=== PATIENT | female | born 1945 | race Caucasian/White ===

== ENCOUNTER 2016-07-08 07:04 | Outpatient (CLI) | payer MEDICARE | END 2016-07-08 07:05 | disposition home or self-care (01) | DX: I48.91 Unspecified atrial fibrillation (principal); I65.1 Occlusion and stenosis of basilar artery; I25.9 Chronic ischemic heart disease, unspecified; E78.5 Hyperlipidemia, unspecified; I10 Essential (primary) hypertension; M54.5 Low back pain; F41.8 Other specified anxiety disorders; G35 Multiple sclerosis; G47.30 Sleep apnea, unspecified; R32 Unspecified urinary incontinence; Z51.81 Encounter for therapeutic drug level monitoring ==

== ENCOUNTER 2016-07-16 07:03 | Outpatient (CLI) | payer MEDICARE | END 2016-07-16 07:04 | disposition home or self-care (01) | LOC: LAB.F 07:03 | PROVIDERS: ATTEND Internal Medicine | DX: I48.91 Unspecified atrial fibrillation (principal) | CPT/HCPCS: 85610 ==

== ENCOUNTER 2016-07-22 07:06 | Outpatient (CLI) | payer MEDICARE | END 2016-07-22 07:07 | disposition home or self-care (01) | DX: I48.91 Unspecified atrial fibrillation (principal) ==

== ENCOUNTER 2016-08-20 07:22 | Outpatient (CLI) | payer MEDICARE | END 2016-08-20 07:23 | disposition home or self-care (01) | DX: I48.91 Unspecified atrial fibrillation (principal) ==

== ENCOUNTER 2016-08-23 07:09 | Outpatient (CLI) | payer MEDICARE | END 2016-08-23 07:10 | disposition home or self-care (01) | DX: I48.91 Unspecified atrial fibrillation (principal) ==

== ENCOUNTER 2016-08-27 07:02 | Outpatient (CLI) | payer MEDICARE | END 2016-08-27 07:03 | disposition home or self-care (01) | DX: I48.91 Unspecified atrial fibrillation (principal) ==

== ENCOUNTER 2016-08-30 06:58 | Outpatient (CLI) | payer MEDICARE | END 2016-08-30 06:59 | disposition home or self-care (01) | DX: I48.91 Unspecified atrial fibrillation (principal) ==

== ENCOUNTER 2016-09-13 10:11 | Outpatient (CLI) | payer MEDICARE | END 2016-09-13 10:12 | disposition home or self-care (01) | DX: M51.36 Other intervertebral disc degeneration, lumbar region (principal); M47.896 Other spondylosis, lumbar region ==

== ENCOUNTER 2016-09-17 07:08 | Outpatient (CLI) | payer MEDICARE | END 2016-09-17 07:09 | disposition home or self-care (01) | DX: I48.91 Unspecified atrial fibrillation (principal) ==

== ENCOUNTER 2016-09-20 08:20 | Outpatient (CLI) | payer MEDICARE | END 2016-09-20 08:21 | disposition home or self-care (01) | DX: I48.91 Unspecified atrial fibrillation (principal) ==

== ENCOUNTER 2016-09-23 07:07 | Outpatient (CLI) | payer MEDICARE | END 2016-09-23 07:08 | disposition home or self-care (01) | DX: I48.91 Unspecified atrial fibrillation (principal) ==

== ENCOUNTER 2016-09-30 07:07 | Outpatient (CLI) | payer MEDICARE | END 2016-09-30 07:08 | disposition home or self-care (01) | DX: I48.91 Unspecified atrial fibrillation (principal) ==

== ENCOUNTER 2016-10-22 07:01 | Outpatient (CLI) | payer MEDICARE | END 2016-10-22 07:02 | disposition home or self-care (01) | DX: I48.91 Unspecified atrial fibrillation (principal) ==

== ENCOUNTER 2016-12-24 07:06 | Outpatient (CLI) | payer MEDICARE | END 2016-12-24 07:07 | disposition home or self-care (01) | LOC: LAB.F 07:06 | PROVIDERS: ATTEND Internal Medicine | DX: I48.91 Unspecified atrial fibrillation (principal) | CPT/HCPCS: 85610 ==

== ENCOUNTER 2017-02-18 07:11 | Outpatient (CLI) | payer MEDICARE | END 2017-02-18 07:12 | disposition home or self-care (01) | LOC: LAB.F 07:11 | PROVIDERS: ATTEND Internal Medicine | DX: I48.91 Unspecified atrial fibrillation (principal) | CPT/HCPCS: 85610 ==

== ENCOUNTER 2017-04-15 07:00 | Outpatient (CLI) | payer MEDICARE | END 2017-04-15 07:01 | disposition home or self-care (01) | LOC: LAB.F 07:00 | PROVIDERS: ATTEND Internal Medicine | DX: I48.91 Unspecified atrial fibrillation (principal) | CPT/HCPCS: 85610 ==

== ENCOUNTER 2017-04-18 08:00 | Outpatient (CLI) | payer MEDICARE | END 2017-04-18 08:01 | disposition home or self-care (01) | LOC: LAB.R 08:00 | PROVIDERS: ATTEND Internal Medicine | DX: I48.91 Unspecified atrial fibrillation (principal) | CPT/HCPCS: 85610 ==

== ENCOUNTER 2017-04-18 10:01 | Outpatient (CLI) | payer MEDICARE | END 2017-04-18 10:02 | disposition home or self-care (01) | LOC: LAB.F 10:01 | PROVIDERS: ATTEND Internal Medicine | DX: I48.91 Unspecified atrial fibrillation (principal) | CPT/HCPCS: 85610 ==

== ENCOUNTER 2017-04-29 07:09 | Outpatient (CLI) | payer MEDICARE | END 2017-04-29 07:10 | disposition home or self-care (01) | LOC: LAB.F 07:09 | PROVIDERS: ATTEND Internal Medicine | DX: I48.91 Unspecified atrial fibrillation (principal) ==

== ENCOUNTER 2017-05-02 07:08 | Outpatient (CLI) | payer MEDICARE | END 2017-05-02 07:09 | disposition home or self-care (01) | LOC: LAB.F 07:08 | PROVIDERS: ATTEND Internal Medicine | DX: I48.91 Unspecified atrial fibrillation (principal) | CPT/HCPCS: 85610 ==

== ENCOUNTER 2017-05-09 07:17 | Outpatient (CLI) | payer MEDICARE | END 2017-05-09 07:18 | disposition home or self-care (01) | LOC: LAB.F 07:17 | PROVIDERS: ATTEND Internal Medicine | DX: I48.91 Unspecified atrial fibrillation (principal) | CPT/HCPCS: 85610 ==

== ENCOUNTER 2017-05-19 07:08 | Outpatient (CLI) | payer MEDICARE | END 2017-05-19 07:09 | disposition home or self-care (01) | LOC: LAB.F 07:08 | PROVIDERS: ATTEND Internal Medicine | DX: I48.91 Unspecified atrial fibrillation (principal) | CPT/HCPCS: 85610 ==

== ENCOUNTER 2017-05-26 07:04 | Outpatient (CLI) | payer MEDICARE | END 2017-05-26 07:05 | disposition home or self-care (01) | LOC: LAB.F 07:04 | PROVIDERS: ATTEND Internal Medicine | DX: I48.91 Unspecified atrial fibrillation (principal) | CPT/HCPCS: 85610 ==

== ENCOUNTER 2017-05-28 10:54 | Outpatient (CLI) | payer MEDICARE | END 2017-05-28 10:55 | disposition short-term general hospital (02) | LOC: EMS 10:54 | PROVIDERS: ATTEND Surgery | DX: R42 Dizziness and giddiness (principal); W18.30XA Fall on same level, unspecified, initial encounter; Y92.511 Restaurant or cafe as the place of occurrence of the external cause | CPT/HCPCS: A0170; A0425; A0427 ==

== ENCOUNTER 2017-06-10 07:02 | Outpatient (CLI) | payer MEDICARE | END 2017-06-10 07:03 | disposition home or self-care (01) | LOC: LAB.F 07:02 | PROVIDERS: ATTEND Internal Medicine | DX: I48.91 Unspecified atrial fibrillation (principal) | CPT/HCPCS: 85610 ==

== ENCOUNTER 2017-06-13 07:17 | Outpatient (CLI) | payer MEDICARE | END 2017-06-13 07:18 | disposition home or self-care (01) | LOC: LAB.F 07:17 | PROVIDERS: ATTEND Internal Medicine | DX: I48.91 Unspecified atrial fibrillation (principal) | CPT/HCPCS: 85610 ==

== ENCOUNTER 2017-06-23 07:03 | Outpatient (CLI) | payer MEDICARE | END 2017-06-23 07:04 | disposition home or self-care (01) | LOC: LAB.F 07:03 | PROVIDERS: ATTEND Internal Medicine | DX: I48.91 Unspecified atrial fibrillation (principal) | CPT/HCPCS: 85610 ==

== ENCOUNTER 2017-07-02 12:04 | Outpatient (CLI) | payer MEDICARE ==
--- NOTE | 2017-07-04 11:25 | MRI Report ---
EXAM: LEFT SHOULDER MRI WITHOUT CONTRAST EXAM DATE: 07/02/2017 01:22 PM. CLINICAL HISTORY: Left shoulder pain after a fall on 06/28/2016. COMPARISON: None. TECHNIQUE: Multiplanar, multisequence T1-weighted and fluid-sensitive sequences of the shoulder witho ut contrast. Other: None. FINDINGS: Acromioclavicular Region: The acromion is type II. Mild acromioclavicular osteoarthropathy is evidenc ed by bony hypertrophy, periarticular cyst formation, and capsular hypertrophy. The coracoacromial an d coracoclavicular ligaments are intact. No subacromial/subdeltoid bursal fluid. Glenohumeral Region: No subluxation. No effusion or loose bodies. The articular cartilage is unremark able. The glenohumeral ligaments and joint capsule are unremarkable. Bone Marrow: No fracture, marrow edema or bone lesions. Labrum: The labrum is unremarkable on this nonarthrographic study. Musculature/Rotator Cuff: The subscapularis tendon is unremarkable. The supraspinatus tendon has a pa rtial-thickness, joint-sided tear that is 1.5 cm in width, 1 cm in length, and 75% in thickness (701/ 8). The infraspinatus and teres minor tendons are intact. No edema or fatty atrophy. Biceps Tendon: The long head of the biceps tendon and biceps rell are intact. Other: The subcutaneous tissues are unremarkable. IMPRESSION: 1. Mild acromioclavicular osteoarthropathy. 2. Partial tear of the supraspinatus tendon. [facility] MUSCULOSKELET[facility]IOLOGY SECTION Referring Provider Line: [phone] SITE ID: [id number]
== END 2017-07-02 12:05 | disposition home or self-care (01) ==
LOC: DI 12:04
PROVIDERS: ATTEND Orthopaedic Surgery
DX: M19.012 Primary osteoarthritis, left shoulder (principal); M75.102 Unspecified rotator cuff tear or rupture of left shoulder, not specified as traumatic

== ENCOUNTER 2017-07-15 07:12 | Outpatient (CLI) | payer MEDICARE | END 2017-07-15 07:13 | disposition home or self-care (01) | LOC: LAB.F 07:12 | PROVIDERS: ATTEND Internal Medicine | DX: I48.91 Unspecified atrial fibrillation (principal) | CPT/HCPCS: 85610 ==

== ENCOUNTER 2017-07-18 07:06 | Outpatient (CLI) | payer MEDICARE | END 2017-07-18 07:07 | disposition home or self-care (01) | LOC: LAB.F 07:06 | PROVIDERS: ATTEND Internal Medicine | DX: I48.91 Unspecified atrial fibrillation (principal) | CPT/HCPCS: 85610 ==

== ENCOUNTER 2017-08-24 07:11 | Outpatient (CLI) | payer MEDICARE | END 2017-08-24 07:12 | disposition home or self-care (01) | LOC: LAB.F 07:11 | PROVIDERS: ATTEND Internal Medicine | DX: I48.91 Unspecified atrial fibrillation (principal) | CPT/HCPCS: 85610 ==

== ENCOUNTER 2017-09-20 07:05 | Outpatient (CLI) | payer MEDICARE ==
[2017-09-20 12:05] LABS: BASOPHILS % (AUTO) 0.8 %; EOSINOPHILS # (AUTO) 0.1 10^3/uL (0.0-0.7); EOSINOPHILS % (AUTO) 2.7 %; HGB - HEMOGLOBIN 13.7 g/dL (12.0-16.0); LYMPHOCYTES # (AUTO) 0.8 10^3/uL (1.5-3.5); LYMPHOCYTES % (AUTO) 20.2 %; MEAN CORPUSCULAR HEMOGLOBIN 34.3 pg (27.0-31.0); MEAN CORPUSCULAR HGB CONC 34.5 g/dL (32.0-36.0); MEAN CORPUSCULAR VOLUME 99.5 fL (81.0-99.0); MEAN PLATELET VOLUME 9.1 fL (7.9-10.8); MONOCYTES # (AUTO) 0.4 10^3/uL (0.0-1.0); MONOCYTES % (AUTO) 11.1 %; NEUTROPHILS # (AUTO) 2.5 10^3/uL (1.5-6.6); NEUTROPHILS % (AUTO) 65.2 %; PLT - PLATELET COUNT 142 10^3/uL (130-450); RED BLOOD COUNT 3.98 10^6/uL (4.20-5.40); RED CELL DISTRIBUTION WIDTH 14.2 % (12.0-15.0); WHITE BLOOD COUNT 3.9 x10^3/uL (4.8-10.8)
[2017-09-20 12:37] LABS: BUN - BLOOD UREA NITROGEN 19 mg/dL (6-20); CALCIUM 8.7 mg/dL (8.5-10.3); CARBON DIOXIDE - CO2 28 mmol/L (21-32); CHLORIDE 99 mmol/L (101-111); CHOL/HDL RATIO 3.8 (<4.4); CHOLESTEROL 157 mg/dL; CREATININE 0.7 mg/dL (0.4-1.0); GFR - MDRD 82 (>89); GLUCOSE 108 mg/dL (70-100); HDL CHOLESTEROL 41 mg/dL; LDL CHOLESTEROL,CALCULATED 92 mg/dL; LDL/HDL RATIO 2.2 (<4.4); SODIUM 134 mmol/L (135-145); VLDL CHOLESTEROL 24 mg/dL
== END 2017-09-20 07:06 | disposition home or self-care (01) ==
LOC: LAB.F 07:05
PROVIDERS: ATTEND Internal Medicine
DX: I48.91 Unspecified atrial fibrillation (principal)
CPT/HCPCS: 36415; 80048; 80061; 81001; 81003; 83721; 84443; 85025; 85610; 87086

== ENCOUNTER 2017-10-04 08:44 | Outpatient (CLI) | payer MEDICARE ==
--- NOTE | 2017-10-05 13:59 | Mammography Report ---
DIGITAL SCREENING MAMMOGRAM: 10/04/2017 CLINICAL INDICATION: A 72-year-old for screening. COMPARISON: 07/2015, 06/2013. TECHNIQUE: Routine CC and MLO projections were obtained of the breasts. FINDINGS: The breasts demonstrate scattered fibroglandular densities bilaterally. Coarse and punctate, typically benign calcifications are present. No suspicious masses, clustered microcalcifications, or regions of architectural distortion are identified. IMPRESSION: BENIGN FINDINGS. RECOMMENDATION: Routine annual screening unless otherwise clinically indicated. BI-RADS CATEGORY 2 - BENIGN FINDINGS. STANDARD QUALIFYING STATEMENTS: 1. This examination was reviewed with the aid of Computer-Aided Detection (CAD) . 2. A negative or benign imaging report should not delay biopsy if clinically suspicious findings are present. Consider surgical consultation if warranted. More than 5 % of cancers are not identified by imaging. 3. Dense breasts may obscure an underlying neoplasm. TD: 10/05/2017 13:58 RANGEL
== END 2017-10-04 08:45 | disposition home or self-care (01) ==
LOC: DI.S 08:44
PROVIDERS: ATTEND Internal Medicine
DX: Z12.31 Encounter for screening mammogram for malignant neoplasm of breast (principal)
CPT/HCPCS: 77067

== ENCOUNTER 2017-11-18 07:03 | Outpatient (CLI) | payer MEDICARE | END 2017-11-18 07:04 | disposition home or self-care (01) | LOC: LAB.F 07:03 | PROVIDERS: ATTEND Internal Medicine | DX: I48.91 Unspecified atrial fibrillation (principal) | CPT/HCPCS: 85610 ==

== ENCOUNTER 2017-11-21 07:06 | Outpatient (CLI) | payer MEDICARE | END 2017-11-21 07:07 | disposition home or self-care (01) | LOC: LAB.F 07:06 | PROVIDERS: ATTEND Internal Medicine | DX: I48.91 Unspecified atrial fibrillation (principal) | CPT/HCPCS: 85610 ==

== ENCOUNTER 2017-11-23 07:05 | Outpatient (CLI) | payer MEDICARE | END 2017-11-23 07:06 | disposition home or self-care (01) | LOC: LAB.F 07:05 | PROVIDERS: ATTEND Internal Medicine | DX: I48.91 Unspecified atrial fibrillation (principal) | CPT/HCPCS: 85610 ==

== ENCOUNTER 2017-11-25 07:03 | Outpatient (CLI) | payer MEDICARE | END 2017-11-25 07:04 | disposition home or self-care (01) | LOC: LAB.F 07:03 | PROVIDERS: ATTEND Internal Medicine | DX: I48.91 Unspecified atrial fibrillation (principal) | CPT/HCPCS: 85610 ==

== ENCOUNTER 2017-11-28 09:59 | Outpatient (CLI) | END 2017-11-28 10:00 | disposition home or self-care (01) ==

== ENCOUNTER 2017-12-05 07:06 | Outpatient (CLI) | payer MEDICARE | END 2017-12-05 07:07 | disposition home or self-care (01) | LOC: LAB.F 07:06 | PROVIDERS: ATTEND Internal Medicine | DX: I48.91 Unspecified atrial fibrillation (principal) | CPT/HCPCS: 85610 ==

== ENCOUNTER 2017-12-12 07:10 | Outpatient (CLI) | payer MEDICARE | END 2017-12-12 07:11 | disposition home or self-care (01) | LOC: LAB.F 07:10 | PROVIDERS: ATTEND Internal Medicine | DX: I48.91 Unspecified atrial fibrillation (principal) | CPT/HCPCS: 85610 ==

== ENCOUNTER 2017-12-23 07:06 | Outpatient (CLI) | payer MEDICARE | END 2017-12-23 07:07 | disposition home or self-care (01) | LOC: LAB.F 07:06 | PROVIDERS: ATTEND Internal Medicine | DX: I48.91 Unspecified atrial fibrillation (principal) | CPT/HCPCS: 85610 ==

== ENCOUNTER 2018-01-13 07:04 | Outpatient (CLI) | payer MEDICARE | END 2018-01-13 07:05 | disposition home or self-care (01) | LOC: LAB.F 07:04 | PROVIDERS: ATTEND Internal Medicine | DX: I48.91 Unspecified atrial fibrillation (principal) | CPT/HCPCS: 85610 ==

== ENCOUNTER 2018-02-16 07:04 | Outpatient (CLI) | payer MEDICARE | END 2018-02-16 07:05 | disposition home or self-care (01) | LOC: LAB.F 07:04 | PROVIDERS: ATTEND Internal Medicine | DX: I48.91 Unspecified atrial fibrillation (principal) | CPT/HCPCS: 85610 ==

== ENCOUNTER 2018-03-02 07:08 | Outpatient (CLI) | payer MEDICARE | END 2018-03-02 07:09 | disposition home or self-care (01) | LOC: LAB.F 07:08 | PROVIDERS: ATTEND Internal Medicine | DX: I48.91 Unspecified atrial fibrillation (principal) | CPT/HCPCS: 85610 ==

== ENCOUNTER 2018-03-22 07:02 | Outpatient (CLI) | payer MEDICARE | END 2018-03-22 07:03 | disposition home or self-care (01) | LOC: LAB.F 07:02 | PROVIDERS: ATTEND Internal Medicine | DX: I48.91 Unspecified atrial fibrillation (principal) | CPT/HCPCS: 85610 ==

== ENCOUNTER 2018-04-20 07:15 | Outpatient (CLI) | payer MEDICARE ==
[2018-04-20 11:19] LABS: INR 2.8 (0.8-1.2); PT - PROTHROMBIN TIME 30.8 secs (9.9-12.6)
== END 2018-04-20 07:16 | disposition home or self-care (01) ==
LOC: LAB.F 07:15
PROVIDERS: ATTEND Internal Medicine
DX: Z00.00 Encounter for general adult medical examination without abnormal findings (principal); I48.91 Unspecified atrial fibrillation; I65.1 Occlusion and stenosis of basilar artery; I25.9 Chronic ischemic heart disease, unspecified; S42.209A Unspecified fracture of upper end of unspecified humerus, initial encounter for closed fracture; E78.5 Hyperlipidemia, unspecified; I10 Essential (primary) hypertension; R73.01 Impaired fasting glucose; F41.8 Other specified anxiety disorders; G35 Multiple sclerosis; Z12.31 Encounter for screening mammogram for malignant neoplasm of breast; G47.30 Sleep apnea, unspecified; Z12.11 Encounter for screening for malignant neoplasm of colon; R32 Unspecified urinary incontinence
CPT/HCPCS: 36415; 85610

== ENCOUNTER 2018-06-15 09:19 | Outpatient (CLI) | payer MEDICARE | END 2018-06-15 09:20 | disposition home or self-care (01) | LOC: LAB.F 09:19 | PROVIDERS: ATTEND Internal Medicine | DX: I48.91 Unspecified atrial fibrillation (principal) | CPT/HCPCS: 85610 ==

== ENCOUNTER 2018-06-21 07:32 | Outpatient (CLI) | payer MEDICARE | END 2018-06-21 07:33 | disposition home or self-care (01) | LOC: LAB.F 07:32 | PROVIDERS: ATTEND Internal Medicine | DX: I48.91 Unspecified atrial fibrillation (principal) | CPT/HCPCS: 85610 ==

== ENCOUNTER 2018-06-30 08:51 | Outpatient (CLI) | payer MEDICARE | END 2018-06-30 08:52 | disposition home or self-care (01) | LOC: LAB.F 08:51 | PROVIDERS: ATTEND Internal Medicine | DX: I48.91 Unspecified atrial fibrillation (principal) | CPT/HCPCS: 85610 ==

== ENCOUNTER 2018-07-03 07:04 | Outpatient (CLI) | payer MEDICARE | END 2018-07-03 07:05 | disposition home or self-care (01) | LOC: LAB.F 07:04 | PROVIDERS: ATTEND Internal Medicine | DX: I48.91 Unspecified atrial fibrillation (principal) | CPT/HCPCS: 85610 ==

== ENCOUNTER 2018-07-07 07:03 | Outpatient (CLI) | payer MEDICARE | END 2018-07-07 07:04 | disposition home or self-care (01) | LOC: LAB.F 07:03 | PROVIDERS: ATTEND Internal Medicine | DX: I48.91 Unspecified atrial fibrillation (principal) | CPT/HCPCS: 85610 ==

== ENCOUNTER 2018-08-02 07:06 | Outpatient (CLI) | payer MEDICARE | END 2018-08-02 07:07 | disposition home or self-care (01) | LOC: LAB.F 07:06 | PROVIDERS: ATTEND Internal Medicine | DX: I48.91 Unspecified atrial fibrillation (principal) | CPT/HCPCS: 85610 ==

== ENCOUNTER 2018-08-18 07:05 | Outpatient (CLI) | payer MEDICARE | END 2018-08-18 07:06 | disposition home or self-care (01) | LOC: LAB.F 07:05 | PROVIDERS: ATTEND Internal Medicine | DX: I48.91 Unspecified atrial fibrillation (principal) | CPT/HCPCS: 85610 ==

== ENCOUNTER 2018-08-30 08:57 | Outpatient (CLI) | payer MEDICARE | END 2018-08-30 08:58 | disposition home or self-care (01) | LOC: LAB.F 08:57 | PROVIDERS: ATTEND Internal Medicine | DX: I48.91 Unspecified atrial fibrillation (principal) | CPT/HCPCS: 85610 ==

== ENCOUNTER 2018-09-01 18:09 | Outpatient (CLI) | payer MEDICARE | END 2018-09-01 18:10 | disposition short-term general hospital (02) | LOC: EMS 18:09 | PROVIDERS: ATTEND Surgery | DX: R07.9 Chest pain, unspecified (principal); R42 Dizziness and giddiness; R53.1 Weakness | CPT/HCPCS: A0425; A0427 ==

== ENCOUNTER 2018-09-04 07:03 | Outpatient (CLI) | payer MEDICARE ==
[2018-09-04 10:22] LABS: BILIRUBIN,URINE NEGATIVE (NEGATIVE); GLUCOSE, URINE (UA) NEGATIVE (NEGATIVE); KETONES,URINE (UA) NEGATIVE (NEGATIVE); LEUKOCYTE ESTERASE, URINE SMALL (NEGATIVE); NITRITE,URINE NEGATIVE (NEGATIVE); OCCULT BLOOD,URINE NEGATIVE (NEGATIVE); PH,URINE 6.5 PH (5.0-7.5); PROTEIN,URINE NEGATIVE (NEGATIVE); UROBILINOGEN,URINE 0.2 (NORMAL) E.U./dL (NORMAL)
[2018-09-04 10:23] LABS: CLARITY,URINE CLOUDY (CLEAR)
[2018-09-04 10:26] LABS: BASOPHILS % (AUTO) 0.9 %; EOSINOPHILS # (AUTO) 0.2 10^3/uL (0.0-0.7); EOSINOPHILS % (AUTO) 3.8 %; HGB - HEMOGLOBIN 13.2 g/dL (12.0-16.0); LYMPHOCYTES # (AUTO) 0.9 10^3/uL (1.5-3.5); LYMPHOCYTES % (AUTO) 17.9 %; MEAN CORPUSCULAR HEMOGLOBIN 32.4 pg (27.0-31.0); MEAN CORPUSCULAR HGB CONC 34.6 g/dL (32.0-36.0); MEAN CORPUSCULAR VOLUME 93.7 fL (81.0-99.0); MEAN PLATELET VOLUME 9.1 fL (7.9-10.8); MONOCYTES # (AUTO) 0.5 10^3/uL (0.0-1.0); MONOCYTES % (AUTO) 9.3 %; NEUTROPHILS # (AUTO) 3.3 10^3/uL (1.5-6.6); NEUTROPHILS % (AUTO) 68.1 %; PLT - PLATELET COUNT 189 10^3/uL (130-450); RED BLOOD COUNT 4.08 10^6/uL (4.20-5.40); RED CELL DISTRIBUTION WIDTH 14.7 % (12.0-15.0); WHITE BLOOD COUNT 4.9 x10^3/uL (4.8-10.8)
[2018-09-04 10:37] LABS: BACTERIA,URINE Few /HPF (None Seen); MUCUS,URINE Few Strands; RBC,URINE 0-5 /HPF (0-5); SQUAMOUS EPITHELIAL CELL,UR FEW Squamous (<= Few)
[2018-09-04 10:43] LABS: ALBUMIN 3.8 g/dL (3.2-5.5); ALBUMIN/GLOBULIN RATIO 1.2 (1.0-2.2); ALKALINE PHOSPHATASE 107 IU/L (42-121); ALT ALANINE AMINOTRANSFERASE 19 IU/L (10-60); AST ASPARTATE AMINOTRANSFERASE 18 IU/L (10-42); BILIRUBIN,TOTAL 0.5 mg/dL (0.2-1.0); BUN - BLOOD UREA NITROGEN 20 mg/dL (6-20); CALCIUM 8.5 mg/dL (8.5-10.3); CARBON DIOXIDE - CO2 27 mmol/L (21-32); CHLORIDE 101 mmol/L (101-111); CHOLESTEROL 164 mg/dL; CREATININE 0.7 mg/dL (0.4-1.0); GFR - MDRD 82 (>89); GLUCOSE 108 mg/dL (70-100); HDL CHOLESTEROL 41 mg/dL; LDL CHOLESTEROL,CALCULATED 105 mg/dL; LDL/HDL RATIO 2.6 (<4.4); SODIUM 137 mmol/L (135-145); VLDL CHOLESTEROL 18 mg/dL
== END 2018-09-04 07:04 | disposition home or self-care (01) ==
LOC: LAB.F 07:03
PROVIDERS: ATTEND Internal Medicine
DX: I48.91 Unspecified atrial fibrillation (principal); I25.9 Chronic ischemic heart disease, unspecified; E78.5 Hyperlipidemia, unspecified; I10 Essential (primary) hypertension; R73.01 Impaired fasting glucose; F41.8 Other specified anxiety disorders; G35 Multiple sclerosis; R32 Unspecified urinary incontinence
CPT/HCPCS: 36415; 80053; 80061; 81001; 81003; 83721; 84443; 85025; 85610; 87086

== ENCOUNTER 2018-09-07 08:20 | Outpatient (CLI) | payer MEDICARE | END 2018-09-07 08:21 | disposition home or self-care (01) | LOC: LAB.F 08:20 | PROVIDERS: ATTEND Internal Medicine | DX: I48.91 Unspecified atrial fibrillation (principal) | CPT/HCPCS: 85610 ==

== ENCOUNTER 2018-09-20 07:05 | Outpatient (CLI) | payer MEDICARE | END 2018-09-20 07:06 | disposition home or self-care (01) | LOC: LAB.F 07:05 | PROVIDERS: ATTEND Internal Medicine | DX: I48.91 Unspecified atrial fibrillation (principal) | CPT/HCPCS: 85610 ==

== ENCOUNTER 2018-09-27 07:03 | Outpatient (CLI) | payer MEDICARE | END 2018-09-27 07:04 | disposition home or self-care (01) | LOC: LAB.F 07:03 | PROVIDERS: ATTEND Internal Medicine | DX: I48.91 Unspecified atrial fibrillation (principal) | CPT/HCPCS: 85610 ==

== ENCOUNTER 2018-10-11 07:07 | Outpatient (CLI) | payer MEDICARE | END 2018-10-11 07:08 | disposition home or self-care (01) | LOC: LAB.F 07:07 | PROVIDERS: ATTEND Internal Medicine | DX: I48.91 Unspecified atrial fibrillation (principal) | CPT/HCPCS: 85610 ==

== ENCOUNTER 2018-10-16 09:16 | Outpatient (CLI) | payer MEDICARE ==
--- NOTE | 2018-10-16 11:04 | XRAY Report ---
Reason: PAIN IN RIGHT WRIST Procedure Date: 10/16/2018 Accession Number: [id number] / [id number] Procedure: XR - Wrist 4 View RT CPT Code: FULL RESULT: EXAM: RIGHT WRIST RADIOGRAPHY EXAM DATE: 10/16/2018 09:26 AM. CLINICAL HISTORY: Pain in right wrist. COMPARISON: None. TECHNIQUE: 4 views. FINDINGS: Bones: Normal. No fractures or bone lesions. Scaphoid is intact on the dedicated view. Joints: Normal. No subluxations. Soft Tissues: Normal. No soft tissue swelling. IMPRESSION: Normal wrist radiography. [facility]
== END 2018-10-16 09:17 | disposition home or self-care (01) ==
LOC: DI 09:16
PROVIDERS: ATTEND Internal Medicine
DX: M25.531 Pain in right wrist (principal)

== ENCOUNTER 2018-10-25 07:09 | Outpatient (CLI) | payer MEDICARE | END 2018-10-25 07:10 | disposition home or self-care (01) | LOC: LAB.F 07:09 | PROVIDERS: ATTEND Internal Medicine | DX: I48.91 Unspecified atrial fibrillation (principal) | CPT/HCPCS: 85610 ==

== ENCOUNTER 2018-11-17 07:50 | Outpatient (CLI) | payer MEDICARE | END 2018-11-17 07:51 | disposition home or self-care (01) | LOC: LAB.F 07:50 | PROVIDERS: ATTEND Internal Medicine | DX: I48.91 Unspecified atrial fibrillation (principal) | CPT/HCPCS: 85610 ==

== ENCOUNTER 2018-11-22 07:04 | Outpatient (CLI) | payer MEDICARE | END 2018-11-22 07:05 | disposition home or self-care (01) | LOC: LAB.F 07:04 | PROVIDERS: ATTEND Internal Medicine | DX: I48.91 Unspecified atrial fibrillation (principal) | CPT/HCPCS: 85610 ==

== ENCOUNTER 2018-12-27 06:51 | Outpatient (CLI) | payer MEDICARE | END 2018-12-27 06:52 | disposition home or self-care (01) | LOC: LAB.S 06:51 | PROVIDERS: ATTEND Internal Medicine | DX: I48.91 Unspecified atrial fibrillation (principal) | CPT/HCPCS: 85610 ==

== ENCOUNTER 2019-01-03 06:54 | Outpatient (CLI) | payer MEDICARE | END 2019-01-03 06:55 | disposition home or self-care (01) | LOC: LAB.S 06:54 | PROVIDERS: ATTEND Internal Medicine | DX: I48.91 Unspecified atrial fibrillation (principal) | CPT/HCPCS: 85610 ==

== ENCOUNTER 2019-01-17 06:57 | Outpatient (CLI) | payer MEDICARE | END 2019-01-17 06:58 | disposition home or self-care (01) | LOC: LAB.S 06:57 | PROVIDERS: ATTEND Internal Medicine | DX: I48.91 Unspecified atrial fibrillation (principal) | CPT/HCPCS: 85610 ==

== ENCOUNTER 2019-01-31 07:02 | Outpatient (CLI) | payer MEDICARE | END 2019-01-31 07:03 | disposition home or self-care (01) | LOC: LAB.S 07:02 | PROVIDERS: ATTEND Internal Medicine | DX: I48.91 Unspecified atrial fibrillation (principal) | CPT/HCPCS: 85610 ==

== ENCOUNTER 2019-02-14 06:56 | Outpatient (CLI) | payer MEDICARE | END 2019-02-14 06:57 | disposition home or self-care (01) | LOC: LAB.S 06:56 | PROVIDERS: ATTEND Internal Medicine | DX: I48.91 Unspecified atrial fibrillation (principal) | CPT/HCPCS: 85610 ==

== ENCOUNTER 2019-02-23 06:52 | Outpatient (CLI) | payer MEDICARE | END 2019-02-23 06:53 | disposition home or self-care (01) | LOC: LAB.S 06:52 | PROVIDERS: ATTEND Internal Medicine | DX: I48.91 Unspecified atrial fibrillation (principal) | CPT/HCPCS: 85610 ==

== ENCOUNTER 2019-03-26 07:01 | Outpatient (CLI) | payer MEDICARE | END 2019-03-26 07:02 | disposition home or self-care (01) | LOC: LAB.S 07:01 | PROVIDERS: ATTEND Internal Medicine | DX: I48.91 Unspecified atrial fibrillation (principal) | CPT/HCPCS: 85610 ==

== ENCOUNTER 2019-05-04 08:49 | Outpatient (CLI) | payer MEDICARE | END 2019-05-04 08:50 | disposition home or self-care (01) | LOC: LAB.F 08:49 | PROVIDERS: ATTEND Internal Medicine | DX: I48.91 Unspecified atrial fibrillation (principal) | CPT/HCPCS: 85610 ==

== ENCOUNTER 2019-05-16 07:01 | Outpatient (CLI) | payer MEDICARE | END 2019-05-16 07:02 | disposition home or self-care (01) | LOC: LAB.S 07:01 | PROVIDERS: ATTEND Internal Medicine | DX: I48.91 Unspecified atrial fibrillation (principal) | CPT/HCPCS: 85610 ==

== ENCOUNTER 2019-06-13 07:02 | Outpatient (CLI) | payer MEDICARE | END 2019-06-13 07:03 | disposition home or self-care (01) | LOC: LAB.S 07:02 | PROVIDERS: ATTEND Internal Medicine | DX: I48.91 Unspecified atrial fibrillation (principal) | CPT/HCPCS: 85610 ==

== ENCOUNTER 2019-07-11 06:59 | Outpatient (CLI) | payer MEDICARE | END 2019-07-11 07:00 | disposition home or self-care (01) | LOC: LAB.S 06:59 | PROVIDERS: ATTEND Internal Medicine | DX: I48.91 Unspecified atrial fibrillation (principal) | CPT/HCPCS: 85610 ==

== ENCOUNTER 2019-08-02 06:53 | Outpatient (CLI) | payer MEDICARE | END 2019-08-02 06:54 | disposition home or self-care (01) | LOC: LAB.S 06:53 | PROVIDERS: ATTEND Internal Medicine | DX: I48.91 Unspecified atrial fibrillation (principal) | CPT/HCPCS: 85610 ==

== ENCOUNTER 2019-08-08 06:55 | Outpatient (CLI) | payer MEDICARE | END 2019-08-08 06:56 | disposition home or self-care (01) | LOC: LAB.S 06:55 | PROVIDERS: ATTEND Internal Medicine | DX: I48.91 Unspecified atrial fibrillation (principal) | CPT/HCPCS: 85610 ==

== ENCOUNTER 2019-09-20 10:44 | Outpatient (CLI) | payer MEDICARE | END 2019-09-20 10:45 | disposition home or self-care (01) | LOC: LAB 10:44 | PROVIDERS: ATTEND Internal Medicine | DX: I48.91 Unspecified atrial fibrillation (principal) | CPT/HCPCS: 85610 ==

== ENCOUNTER 2019-09-25 07:37 | Outpatient (CLI) | payer MEDICARE | END 2019-09-25 07:38 | disposition home or self-care (01) | LOC: LAB 07:37 | PROVIDERS: ATTEND Internal Medicine | DX: I48.91 Unspecified atrial fibrillation (principal) | CPT/HCPCS: 85610 ==

== ENCOUNTER 2019-10-05 07:53 | Outpatient (CLI) | payer MEDICARE | END 2019-10-05 07:54 | disposition home or self-care (01) | LOC: LAB 07:53 | PROVIDERS: ATTEND Internal Medicine | DX: I48.91 Unspecified atrial fibrillation (principal) | CPT/HCPCS: 85610 ==

== ENCOUNTER 2019-10-11 07:46 | Outpatient (CLI) | payer MEDICARE | END 2019-10-11 07:47 | disposition home or self-care (01) | LOC: LAB 07:46 | PROVIDERS: ATTEND Internal Medicine | DX: I48.91 Unspecified atrial fibrillation (principal) | CPT/HCPCS: 85610 ==

== ENCOUNTER 2019-10-18 07:42 | Outpatient (CLI) | payer MEDICARE | END 2019-10-18 07:43 | disposition home or self-care (01) | LOC: LAB 07:42 | PROVIDERS: ATTEND Internal Medicine | DX: I48.91 Unspecified atrial fibrillation (principal) | CPT/HCPCS: 85610 ==

== ENCOUNTER 2019-10-24 07:43 | Outpatient (CLI) | payer MEDICARE | END 2019-10-24 07:44 | disposition home or self-care (01) | LOC: LAB 07:43 | PROVIDERS: ATTEND Internal Medicine | DX: I48.91 Unspecified atrial fibrillation (principal) | CPT/HCPCS: 85610 ==

== ENCOUNTER 2019-10-31 07:52 | Outpatient (CLI) | payer MEDICARE | END 2019-10-31 07:53 | disposition home or self-care (01) | LOC: LAB 07:52 | PROVIDERS: ATTEND Internal Medicine | DX: I48.91 Unspecified atrial fibrillation (principal) | CPT/HCPCS: 85610 ==

== ENCOUNTER 2019-11-07 08:11 | Outpatient (CLI) | payer MEDICARE | END 2019-11-07 08:12 | disposition home or self-care (01) | LOC: LAB 08:11 | PROVIDERS: ATTEND Internal Medicine | DX: I48.91 Unspecified atrial fibrillation (principal) | CPT/HCPCS: 85610 ==

== ENCOUNTER 2019-11-14 07:53 | Outpatient (CLI) | payer MEDICARE | END 2019-11-14 07:54 | disposition home or self-care (01) | LOC: LAB 07:53 | PROVIDERS: ATTEND Internal Medicine | DX: I48.91 Unspecified atrial fibrillation (principal) | CPT/HCPCS: 85610 ==

== ENCOUNTER 2020-02-19 09:21 | Outpatient (CLI) | payer MEDICARE ==
[2020-02-19 15:08] LABS: BILIRUBIN,URINE NEGATIVE (NEGATIVE); CLARITY,URINE HAZY (CLEAR); GLUCOSE, URINE (UA) NEGATIVE (NEGATIVE); KETONES,URINE (UA) NEGATIVE (NEGATIVE); LEUKOCYTE ESTERASE, URINE LARGE (NEGATIVE); NITRITE,URINE POSITIVE (NEGATIVE); OCCULT BLOOD,URINE TRACE-INTA (NEGATIVE); PH,URINE 6.5 PH (5.0-7.5); PROTEIN,URINE NEGATIVE (NEGATIVE); UROBILINOGEN,URINE 0.2 (NORMAL) E.U./dL (NORMAL)
[2020-02-19 15:10] LABS: BASOPHILS % (AUTO) 0.5 %; EOSINOPHILS # (AUTO) 0.2 10^3/uL (0.0-0.7); EOSINOPHILS % (AUTO) 5.2 %; HGB - HEMOGLOBIN 13.6 g/dL (12.0-16.0); LYMPHOCYTES % (AUTO) 22.5 %; MEAN CORPUSCULAR HEMOGLOBIN 32.9 pg (27.0-31.0); MEAN CORPUSCULAR HGB CONC 33.5 g/dL (32.0-36.0); MEAN CORPUSCULAR VOLUME 98.1 fL (81.0-99.0); MEAN PLATELET VOLUME 11.5 fL (7.9-10.8); MONOCYTES # (AUTO) 0.4 10^3/uL (0.0-1.0); MONOCYTES % (AUTO) 9.2 %; NEUTROPHILS # (AUTO) 2.6 10^3/uL (1.5-6.6); NEUTROPHILS % (AUTO) 62.4 %; PLT - PLATELET COUNT 153 10^3/uL (130-450); RED BLOOD COUNT 4.14 10^6/uL (4.20-5.40); RED CELL DISTRIBUTION WIDTH 13.3 % (12.0-15.0); WHITE BLOOD COUNT 4.2 x10^3/uL (4.8-10.8)
[2020-02-19 15:18] LABS: BACTERIA,URINE Many /HPF (None Seen); CASTS, URINE 6-10 Hyaline Casts /LPF; RBC,URINE 0-5 /HPF (0-5); SQUAMOUS EPITHELIAL CELL,UR NONE SEEN (<= Few)
[2020-02-19 15:36] LABS: ALBUMIN 4.2 g/dL (3.2-5.5); ALBUMIN/GLOBULIN RATIO 1.4 (1.0-2.2); ALKALINE PHOSPHATASE 81 IU/L (42-121); ALT ALANINE AMINOTRANSFERASE 19 IU/L (10-60); AST ASPARTATE AMINOTRANSFERASE 18 IU/L (10-42); BILIRUBIN,TOTAL 0.8 mg/dL (0.2-1.0); BUN - BLOOD UREA NITROGEN 20 mg/dL (6-20); CALCIUM 9.1 mg/dL (8.5-10.3); CARBON DIOXIDE - CO2 25 mmol/L (21-32); CHLORIDE 103 mmol/L (101-111); CHOL/HDL RATIO 3.5 (<4.4); CHOLESTEROL 159 mg/dL; CREATININE 0.7 mg/dL (0.4-1.0); GLUCOSE 103 mg/dL (70-100); HDL CHOLESTEROL 46 mg/dL; LDL CHOLESTEROL,CALCULATED 84 mg/dL; LDL/HDL RATIO 1.8 (<4.4); SODIUM 138 mmol/L (135-145); TOTAL PROTEIN 7.1 g/dL (6.7-8.2); VLDL CHOLESTEROL 29 mg/dL
== END 2020-02-19 09:22 | disposition home or self-care (01) ==
LOC: LAB.S 09:21
PROVIDERS: ATTEND Internal Medicine
DX: I48.91 Unspecified atrial fibrillation (principal); I10 Essential (primary) hypertension; Z51.81 Encounter for therapeutic drug level monitoring; E78.5 Hyperlipidemia, unspecified; Z79.899 Other long term (current) drug therapy
CPT/HCPCS: 36415; 80053; 80061; 81001; 81003; 83721; 84443; 85025; 85610; 87077; 87086; 87181

== ENCOUNTER 2020-05-19 04:05 | Outpatient (CLI) | payer MEDICARE | END 2020-05-19 04:06 | disposition critical access hospital (66) | LOC: EMS 04:05 | PROVIDERS: ATTEND Surgery | DX: R53.1 Weakness (principal); R19.7 Diarrhea, unspecified; R11.2 Nausea with vomiting, unspecified; M79.10 Myalgia, unspecified site; R68.83 Chills (without fever) | CPT/HCPCS: A0425; A0427 ==

== ENCOUNTER 2020-05-19 04:54 | Observation (INO) | payer MEDICARE ==
[2020-05-19] MEDS ORDERED: SODIUM CHLORIDE 0.9% 1,000 ML IV STA ×3 (05:09→07:35)
[2020-05-19] MEDS ORDERED: HYDROmorphone 1 MG/ML CARPUJECT IVP STA ×3 (05:10→06:54)
--- NOTE | 2020-05-19 05:12 | ED Physician Documentation ---
PD HPI NVD - Stated complaint Stated Complaint: BODY ACHES, FEVER, VOMITING - History obtained from History obtained from: Patient, EMS - History of Present Illness Timing - onset: How many days ago (Onset Tuesday (3 days ago) of feeling malaise, nausea and aches. Developed upper abd pain with nausea and vomiting, and diarrhea the past 2 days. mild cough. Feeling generally weak overnight; has not had much to eat nor drink for 1-2 days.) Associated symptoms: Fever, Abdominal pain, Loss of appetite. No: Chest pain, Hematemesis, Hematochezia Contributing factors: No: Sick contact, Bad food, Recent antibiotics Similar symptoms before: Has not had sx before Recently seen: Not recently seen Review of Systems Constitutional: reports: Fever (2 days ago), Myalgias, Fatigue Nose: denies: Rhinorrhea / runny nose, Congestion Throat: denies: Sore throat Cardiac: denies: Chest pain / pressure Respiratory: reports: Cough (mild). denies: Dyspnea GI: reports: Abdominal Pain, Nausea, Vomiting, Diarrhea. denies: Hematemesis, Bloody / black stool : denies: Dysuria Skin: denies: Rash Neurologic: reports: Generalized weakness. denies: Near syncope, Headache PD PAST MEDICAL HISTORY - Past Medical History Cardiovascular: Hypertension, High cholesterol, Atrial fibrillation Respiratory: Sleep apnea Neuro: Migraines, Other (denies seizure disorder) Endocrine/Autoimmune: Other GI: GERD SENIOR GAMEMASTER: None : Incontinence, Frequency HEENT: None Psych: Depression, Anxiety Musculoskeletal: Other Derm: None - Past Surgical History Past Surgical History: Yes General: Cholecystectomy /SENIOR GAMEMASTER: Hysterectomy - Present Medications Home Medications: Ambulatory Orders Medication Instructions Recorded Confirmed Metoprolol Tartrate 200 mg PO DAILY 10/25/12 05/19/20 Atorvastatin Calcium 40 mg PO QPM 10/26/12 05/19/20 Oxybutynin [Ditropan] 20 mg PO DAILY 10/26/12 05/19/20 carBAMazepine [TEGretol] 200 mg PO QPM 10/26/12 05/19/20 Aspirin EC [Ecotrin] 81 mg PO DAILY 07/20/13 05/19/20 Ca Cmb No.1/Vit D3/B-6/FA/B12 1 each PO DAILY 07/20/13 05/19/20 [Vitamin D3 1,000 Unit Tablet] Losartan Potassium [Cozaar] 50 mg PO DAILY 07/20/13 05/19/20 Nitroglycerin [Nitrostat] 0.4 mg SL Q5MIN PRN 04/18/15 04/18/15 Sertraline [Zoloft] 200 mg ORAL DAILY 04/18/15 05/19/20 Diltiazem HCl [Diltiazem 12Hr ER] 240 mg PO DAILY 05/19/20 05/19/20 Rivaroxaban [Xarelto] 20 mg PO DAILY 05/19/20 05/19/20 - Allergies Allergies/Adverse Reactions: Allergies Allergy/AdvReac Type Severity Reaction Status Date / Time iodine Allergy Unknown Rash Verified 10/16/13 11:42 codeine [Codeine] AdvReac Unknown Nausea Verified 04/19/15 10:50 hydrocodone bitartrate * AdvReac Unknown Nausea Verified 04/19/15 10:51 [From Vicodin] - Living Situation Living Situation: reports: With spouse/s.o. (her spouse is feeling well.) Living Arrangement: reports: At home - Social History Does the pt smoke?: No Smoking Status: Former smoker Does the pt drink ETOH?: Yes Does the pt have substance abuse?: No - Immunizations Immunizations are current?: Yes Immunizations: TDAP >10years/unknown PD ED PE NORMAL - Vitals Vital signs reviewed: Yes - General General: Alert and oriented X 3, Well developed/nourished, Other (appears in pain from upper abd. ) - HEENT HEENT: Pharynx benign. No: Moist mucous membranes - Neck Neck: Supple, no meningeal sign, No adenopathy - Cardiac Cardiac: No murmur. No: RRR (irregular but controlled rate at about 100.) - Respiratory Respiratory: No respiratory distress, Clear bilaterally - Abdomen Abdomen: Non distended, No organomegaly, Other (very tender upper abd epigastric and RUQ with guarding and some mild rebound. Lower abd also with some tenderness but no guarding. ) - Female Female : Deferred - Rectal Rectal: Deferred - Back Back: No CVA TTP - Derm Derm: Normal color, Warm and dry - Extremities Extremities: Normal ROM s pain, No edema, No calf tenderness / cord - Neuro Neuro: Alert and oriented X 3, No motor deficit, Normal speech Results - Vitals Vitals: Vital Signs - 24 hr 05/19/20 05/19/20 05/19/20 05:15 05:17 06:47 Temperature 36.7 C 36.6 C Heart Rate 103 H 103 H 125 H Respiratory 19 18 24 Rate Blood Pressure 129/85 H 129/85 H 139/76 H O2 Saturation 100 100 99 Oxygen O2 Source Room air - EKG (time done) 05:29 Rate: Rate (enter#) (97) Rhythm: Atrial fibrillation [place]: Normal Ischemia: ST depression (diffuse ST depressions possibly c/w ischemia. ). No: ST elevation c/w ischemia Compare to prior EKG: Old EKG unavailable - Labs Labs: Laboratory Tests 05/19/20 05/19/20 05/19/20 05:19 05:19 05:19 WBC 4.7 L RBC 4.03 L Hgb 13.6 Hct 39.8 MCV 98.8 MCH 33.7 H MCHC 34.2 RDW 13.1 Plt Count 137 MPV 11.0 H Neut # (Auto) 3.1 Lymph # (Auto) 1.0 L Sunflower # (Auto) 0.6 Eos # (Auto) 0.1 Baso # (Auto) 0.0 Absolute Nucleated RBC 0.00 Nucleated RBC % 0.0 PT 13.5 H INR 1.2 APTT 25.1 Sodium 139 Potassium 2.7 L Chloride 104 Carbon Dioxide 23 Anion Gap 12.0 BUN 20 Creatinine 0.9 Estimated GFR (MDRD) 61 L Glucose 118 H Lactic Acid Calcium 8.9 Magnesium 2.1 Total Bilirubin 1.0 AST 21 ALT 20 Alkaline Phosphatase 81 Troponin I High Sens Total Protein 6.8 Albumin 4.0 Globulin 2.8 Albumin/Globulin Ratio 1.4 Lipase 23 Nasal Adenovirus (PCR) Nasal B. parapertussis DNA (PCR) Nasal Coronavir 229E PCR Nasal Coronavir HKU1 PCR Nasal Coronavir NL63 PCR Nasal Coronavir OC43 PCR Nasal Enterovir/Rhinovir PCR Nasal Influenza B PCR Nasal Influenza A PCR Nasal Parainfluen 1 PCR Nasal Parainfluen 2 PCR Nasal Parainfluen 3 PCR Nasal Parainfluen 4 PCR Nasal RSV (PCR) Nasal B.pertussis DNA PCR Nasal C.pneumoniae (PCR) [place] Human Metapneumo PCR Nasal M.pneumoniae (PCR) Nasal SARS-CoV-2 (PCR) Last Dose Date Last Dose Time Carbamazepine 05/19/20 05/19/20 05/19/20 05:19 05:19 05:19 WBC RBC Hgb Hct MCV MCH MCHC RDW Plt Count MPV Neut # (Auto) Lymph # (Auto) Sunflower # (Auto) Eos # (Auto) Baso # (Auto) Absolute Nucleated RBC Nucleated RBC % PT INR APTT Sodium Potassium Chloride Carbon Dioxide Anion Gap BUN Creatinine Estimated GFR (MDRD) Glucose Lactic Acid 2.7 H Calcium Magnesium Total Bilirubin AST ALT Alkaline Phosphatase Troponin I High Sens Total Protein Albumin Globulin Albumin/Globulin Ratio Lipase Nasal Adenovirus (PCR) NOT DETECTED Nasal B. parapertussis DNA (PCR) NOT DETECTED Nasal Coronavir 229E PCR NOT DETECTED Nasal Coronavir HKU1 PCR NOT DETECTED Nasal Coronavir NL63 PCR NOT DETECTED Nasal Coronavir OC43 PCR NOT DETECTED Nasal Enterovir/Rhinovir PCR NOT DETECTED Nasal Influenza B PCR NOT DETECTED Nasal Influenza A PCR NOT DETECTED Nasal Parainfluen 1 PCR NOT DETECTED Nasal Parainfluen 2 PCR NOT DETECTED Nasal Parainfluen 3 PCR NOT DETECTED Nasal Parainfluen 4 PCR NOT DETECTED Nasal RSV (PCR) NOT DETECTED Nasal B.pertussis DNA PCR NOT DETECTED Nasal C.pneumoniae (PCR) NOT DETECTED [place] Human Metapneumo PCR NOT DETECTED Nasal M.pneumoniae (PCR) NOT DETECTED Nasal SARS-CoV-2 (PCR) NOT DETECTED Last Dose Date Last Dose Time 2400 Carbamazepine 4.1 05/19/20 05:19 WBC RBC Hgb Hct MCV MCH MCHC RDW Plt Count MPV Neut # (Auto) Lymph # (Auto) Sunflower # (Auto) Eos # (Auto) Baso # (Auto) Absolute Nucleated RBC Nucleated RBC % PT INR APTT Sodium Potassium Chloride Carbon Dioxide Anion Gap BUN Creatinine Estimated GFR (MDRD) Glucose Lactic Acid Calcium Magnesium Total Bilirubin AST ALT Alkaline Phosphatase Troponin I High Sens 7.5 Total Protein Albumin Globulin Albumin/Globulin Ratio Lipase Nasal Adenovirus (PCR) Nasal B. parapertussis DNA (PCR) Nasal Coronavir 229E PCR Nasal Coronavir HKU1 PCR Nasal Coronavir NL63 PCR Nasal Coronavir OC43 PCR Nasal Enterovir/Rhinovir PCR Nasal Influenza B PCR Nasal Influenza A PCR Nasal Parainfluen 1 PCR Nasal Parainfluen 2 PCR Nasal Parainfluen 3 PCR Nasal Parainfluen 4 PCR Nasal RSV (PCR) Nasal B.pertussis DNA PCR Nasal C.pneumoniae (PCR) [place] Human Metapneumo PCR Nasal M.pneumoniae (PCR) Nasal SARS-CoV-2 (PCR) Last Dose Date Last Dose Time Carbamazepine - Rads (name of study) chest xray Radiology: Prelim report reviewed (no infiltrates nor acute process), See rad report abd/pelvic CT Radiology: Prelim report reviewed, See rad report PD MEDICAL DECISION MAKING - ED course Complexity details: reviewed results (She states she had some fever a couple of days ago. She has atrial fibrillation with a slightly fast ventricular res ponse. Her blood pressure is good. She is afebrile here. Her lactate is moderately elevated at 2.7 but I feel this is hydration related as she does seem dehydrated. ), re-evaluated patient (The relate to the gastrointestinal tract with vomiting and diarrhea. Her CT scan does not show any localized infectious process. She is status post cholecystectomy. She is still having considerable pain in the upper to mid abdomen describing it as crampy. No bowel movements here as yet.), considered differential (consider biliary obstruction, pancreatitis, colitis, gastric ulcer. Less likely pneumonia. Also consider viral illness. No recent abx but will get stool for CDiff. ), d/w patient ED course: Her main symptoms relate to gastroenteritis. She is in A. fib though has anticoagulant that she takes. The regular CT did not give focused answer. We can discuss with the patient further her iodine allergy in order to consider contrast CT. Otherwise she does have ongoing nausea and cramping abdominal pain after medications and may warrant hospitalization. Departure - Departure Clinical Impression: Nausea vomiting and diarrhea, Upper abdominal pain Atrial fibrillation Qualifiers: Atrial fibrillation type: longstanding persistent Qualified Code(s): I48.11 - Longstanding persistent atrial fibrillation Condition: Stable Record reviewed to determine appropriate education?: Yes
[2020-05-19 05:29] LABS: BASOPHILS % (AUTO) 0.4 %; EOSINOPHILS # (AUTO) 0.1 10^3/uL (0.0-0.7); EOSINOPHILS % (AUTO) 1.3 %; HGB - HEMOGLOBIN 13.6 g/dL (12.0-16.0); LYMPHOCYTES % (AUTO) 21.4 %; MEAN CORPUSCULAR HEMOGLOBIN 33.7 pg (27.0-31.0); MEAN CORPUSCULAR HGB CONC 34.2 g/dL (32.0-36.0); MEAN CORPUSCULAR VOLUME 98.8 fL (81.0-99.0); MONOCYTES # (AUTO) 0.6 10^3/uL (0.0-1.0); MONOCYTES % (AUTO) 12.1 %; NEUTROPHILS # (AUTO) 3.1 10^3/uL (1.5-6.6); NEUTROPHILS % (AUTO) 64.6 %; PLT - PLATELET COUNT 137 10^3/uL (130-450); RED BLOOD COUNT 4.03 10^6/uL (4.20-5.40); RED CELL DISTRIBUTION WIDTH 13.1 % (12.0-15.0); WHITE BLOOD COUNT 4.7 x10^3/uL (4.8-10.8)
[2020-05-19 05:41] LABS: ALBUMIN/GLOBULIN RATIO 1.4 (1.0-2.2); CALCIUM 8.9 mg/dL (8.5-10.3); CREATININE 0.9 mg/dL (0.4-1.0); MAGNESIUM 2.1 mg/dL (1.7-2.8); TOTAL PROTEIN 6.8 g/dL (6.7-8.2)
[2020-05-19 05:43] LABS: INR 1.2 (0.8-1.2); PT - PROTHROMBIN TIME 13.5 secs (9.9-12.6)
[2020-05-19 05:50] LABS: PARTIAL THROMBOPLASTIN TIME 25.1 secs (24.9-33.3)
[2020-05-19] MEDS ORDERED: FAMOTIDINE 20 MG/2 ML VIAL IVP STA (06:14)
[2020-05-19 06:20] LABS: CARBAMAZEPINE (TEGRETOL) 4.1 ug/mL
[2020-05-19 06:52] LABS: C. PNEUMONIAE- RESP PCR PANEL NOT DETECTED
[2020-05-19] MEDS ORDERED: ONDANSETRON 4 MG/2 ML VIAL IVP STA (06:54)
[2020-05-19] MEDS ORDERED: POTASSIUM CHLOR 10 MEQ/100 ML 10 MEQ/100 ML BAG IV STA (06:55)
[2020-05-19] MEDS ORDERED: diphenhydrAMINE INJ 50 MG/ML VIAL IVP STA (07:23)
[2020-05-19] MEDS ORDERED: DEXAMETHASONE 10 MG/ML VIAL IVP STA (07:23)
--- NOTE | 2020-05-19 07:26 | ED Physician Documentation ---
ED Addendum - Addendum Addendum: 05/19/20 07:[address] Cabral, briefly this is a 74-year-old woman who was seen and examined at the bedside. She has a history of cholecystectomy although she did not recall this. 2 days of upper abdominal pain, poor appetite. She has a history of A. fib and is in mild RVR. CT had already been done without contrast showing liquid stool in the colon consistent with an enteritis and diverticula without diverticulitis. White count on the low side, lactate mildly high. She has mild upper abdominal tenderness on exam. Given her A. fib even though she is anticoagulated, I worry about ischemic bowel. She has a listed iodine allergy from 2013 with rash as the effect. She does not recall this. We will repeat the CT as an angio, pretreating with Decadron and Benadryl. 05/19/20 09:56 CT angio without evidence of vascular occlusion. Dr. Gusman will observe given intractable pain and the need for high doses of pain medication. 05/19/20 09:56 Diagnosis intractable abdominal pain Disposition observation Condition stable
[2020-05-19] MEDS ORDERED: IOVERSOL 320 100 ML VIAL IVP ONE ×2 (07:46→15:21)
[2020-05-19] MEDS ORDERED: MORPHINE 2 MG/ML CARPUJECT IVP STA (08:14)
--- NOTE | 2020-05-19 08:40 | CT Report ---
PROCEDURE: Abdomen/Pelvis WO INDICATIONS: upper abd pain, vomiting TECHNIQUE: Noncontrast 5 mm thick sections acquired from the diaphragms to the symphysis. 5 mm coronal and sagi ttal reformats were then performed. For radiation dose reduction, the following was used: automated exposure control, adjustment of mA and/or kV according to patient size. COMPARISON: None. FINDINGS: Image quality: Excellent. ABDOMEN: Lung bases: Bibasilar dependent atelectasis is seen. Heart size is enlarged, moderate atherosclerotic disease is seen. Solid organs: Liver and spleen are normal in size. Gallbladder is surgically absent. Pancreas is n ormal in contours. No adrenal nodules. Kidneys are normal in size, without hydronephrosis or nephro lithiasis. 1.7 cm fat density lesion is seen in mid pole of left kidney lateral cortex. Similar 5 mm fat density lesion involving lower pole of left kidney is also seen. Peritoneum and bowel: Unenhanced bowel loops demonstrate normal wall thickness and caliber. No free fluid or air. Colonic diverticulosis is seen, no CT evidence of acute diverticulitis. Appendix is v isualized and is within normal limits. Nodes and vessels: No retroperitoneal or mesenteric adenopathy by size criteria. IVC is normal in ca liber. Dense atherosclerotic calcifications throughout abdominal aorta is seen. Infrarenal abdominal aortic aneurysm measures up to 3 cm in largest AP diameter is seen. Miscellaneous: No ventral hernias. PELVIS: Genitourinary: Bladder wall thickness is normal. Miscellaneous: No inguinal hernias or adenopathy. Bones: No suspicious bony lesions. No vertebral body compression fractures. IMPRESSION: 1. No gross abnormal bowel wall thickening. No free fluid or free air. Small hiatal hernia. Normal ap pendix. Colonic diverticulosis without evidence of acute diverticulitis. 2. Dense atherosclerotic calcifications throughout abdominal aorta with borderline infrarenal abdomin al aortic aneurysm measures up to 3 cm in largest AP diameter. No periaortic fluid. 3. Likely small angiomyolipoma in left kidney measures 1.7 cm and 0.5 cm in size as above. 4. Prior cholecystectomy. No significant discrepancy from preliminary report. Reviewed by: Eyal Gonzalez MD on 05/19/2020 8:38 AM [facility] Approved by: Eyal Gonzalez MD on 05/19/2020 8:38 AM PST Station ID: [id number]
--- NOTE | 2020-05-19 09:03 | CT Report ---
PROCEDURE: ANGIO ABDOMEN/PELVIS W INDICATIONS: upper abd pain, afib CONTRAST: IV CONTRAST: Optiray 320 ml: 100 PO CONTRAST: *NO PO CONTRAST TECHNIQUE: After the administration of intravenous contrast, 2 and 5 mm sections acquired from the diaphragm to the iliac crests. 3-dimensional maximum intensity projection (MIP) coronal and sagittal reformats, a nd/or 3-dimensional volume rendering reformatting was then performed. For radiation dose reduction, the following was used: automated exposure control, adjustment of mA and/or kV according to patient size. COMPARISON: CT abdomen pelvis without contrast 05/19/2020 CT chest 04/19/2015. FINDINGS: Image quality: Excellent. Extravascular tissues: Lung bases demonstrate a 2 mm subpleural left lung nodule. Heart size is enla rged. Liver and spleen are normal in size and enhancement. Steatosis is present. Gallbladder has been removed Biliary system is non dilated. Pancreas enhances normally. No adrenal nodules. Kidneys a re atrophic without hydronephrosis. There is an 18 mm fat-containing lesion within the superior left renal pole. A second similar focus measuring approximately 5 mm is noted in the inferior left renal p ole. Non-opacified bowel loops demonstrate normal wall thickness and caliber. Scattered liquefied st ool is present. No free fluid or air. No retroperitoneal or mesenteric adenopathy. No ventral herni as. No suspicious bony abnormalities. No vertebral body compression fractures. Hiatal hernia is pr esent. Abdominal aorta: The aorta demonstrates moderate appearance of atherosclerotic calcification with ar eas of mural thrombus. No areas of hemodynamically significant stenosis is identified within the mese nteric or renal arteries. IMPRESSION: 1. 2 mm subpleural left lower lobe pulmonary nodule as above. Recommend interval follow-up as below. 2. Left renal angiomyolipomas, unchanged compared to 2014. 3. Scattered liquefied stool possibly related to enteritis. No inflammatory change. Fleischner Society criteria for SOLID lung nodule followup. Nodule size (mm) * <6 * Low-risk patient: No follow-up needed * High-risk patient: Optional CT at 12 months; if no change, no further follow-up * 6-8 * Low-risk patient: Initial follow-up CT at 6-12 months, then optional CT at 18-24 months. * High-risk patient: Initial follow-up CT at CT at 6-[address] 18-24 months. * >8 single nodule * Low-risk patient: CT, PET or biopsy at 3 months. * High-risk patient: Same as for low-risk pts. * >8 multiple nodules * Low-risk patient: CT at 3-6 months, then optional CT at 18-24 months * High-risk patient: CT at 3-6 months, then CT at 18-24 months Reviewed by: Lauren Jacome MD on 05/19/2020 9:02 AM PST Approved by: Lauren Jacome MD on 05/19/2020 9:02 AM PST Station ID: [id number]
[2020-05-19] MEDS ORDERED: ONDANSETRON 4 MG/2 ML VIAL IVP PRN (09:31)
--- NOTE | 2020-05-19 09:31 | XRAY Report ---
PROCEDURE: Chest 1 View X-Ray INDICATIONS: fever, aches, mild cough TECHNIQUE: One view of the chest was acquired. COMPARISON: 04/19/2015 and 07/24/2013 FINDINGS: Surgical changes and devices: None. Lungs and pleura: No pleural effusions or pneumothorax. Lungs are clear. Mediastinum: Mediastinal contours appear normal. Heart is mildly enlarged. Bones and chest wall: No suspicious bony lesions. Overlying soft tissues appear unremarkable. IMPRESSION: No acute cardiopulmonary disease process. Reviewed by: Nena Son MD, PhD on 05/19/2020 9:30 AM [facility] Approved by: Nena Son MD, PhD on 05/19/2020 9:30 AM [facility] Station ID: [id number]
[2020-05-19 09:49] LABS: BILIRUBIN,URINE NEGATIVE (NEGATIVE); GLUCOSE, URINE (UA) NEGATIVE (NEGATIVE); KETONES,URINE (UA) NEGATIVE (NEGATIVE); LEUKOCYTE ESTERASE, URINE SMALL (NEGATIVE); NITRITE,URINE POSITIVE (NEGATIVE); OCCULT BLOOD,URINE NEGATIVE (NEGATIVE); PH,URINE 5.5 PH (5.0-7.5); PROTEIN,URINE NEGATIVE (NEGATIVE); UROBILINOGEN,URINE 0.2 (NORMAL) E.U./dL (NORMAL)
[2020-05-19 09:53] LABS: CLARITY,URINE HAZY (CLEAR)
[2020-05-19 09:56] LABS: BACTERIA,URINE Few /HPF (None Seen); RBC,URINE 0-5 /HPF (0-5); SQUAMOUS EPITHELIAL CELL,UR FEW Squamous (<= Few)
--- NOTE | 2020-05-19 10:30 | HISTORY & PHYSICAL EXAMINATION ---
Chief Complaint - Chief Complaint Chief Complaint: Abdominal pain, nausea, and vomiting History of Present Illness - Admitted From Admitted From:: Home via EMS - History Obtained From Records Reviewed: Yes History obtained from: Patient, Patient chart - History of Present Illness HPI Comment/Other: Patient is a pleasant 72-year-old female with a history of hypertension, hyperlipidemia, and atrial fibrillation who presents to the emergency room with 3 days of nausea and vomiting. She report her symptoms started last Tuesday. She felt unwell and fatigued Tuesday morning, but was able to go grocery shopping. However, she started feeling worse and developed abdominal pain, nausea, and vomiting towards the evening. Her symptoms worsened through the weekend with multiple episodes of non-bloody emesis and diarrhea and severe abdominal pain. Her abdominal pain is said to be 10/10 at its worst and about a 4/10 at its best. She said it started from under her left rib cage and is now felt in her whole entire abdomen. Because of her nausea, she has not been eating or drinking since Tuesday. She also reports having chills and feeling feverish intermittently. She became too weak and was in too much pain last night that her called EMS to take her to the emergency room to be evaluated. She does not recall consuming anything unusual and has not been around anyone who is sick. She lives with her and he is not symptomatic. On arrival to the emergency room, she is in atrial fibrillation RVR, afebrile, mildly hypertensive, and saturating well on room air. Her ECG showed no ST or T wave changes, chest-xray was unremarkable, and abdomen/pelvis CTA showed no signs of obstruction, ischemia, or inflammatory changes. It is noted that she has a 2mm subpleural left lower pulmonary nodule that is non-contributary to her current symptoms. Her potassium is 2.7. This was replaced with 10 mEq in the emergency room. No leukytosis and inital mildly elevated lactate is now correct with IV fluid. Patient denies cough, chest pain, shortness of breath. She has occasional heartburn. She has not vomited since she's been here after receiving IV ondansetron. Her abdominal pain has improved with IV dilaudid as well. She denies dysuria, urinary frequency, or urgency or flank pain. On exam, patient's belly is tender to palpation especially around her rib area. She reports her pain is worse on the left abdomen and rib than the right. There is guarding and grimacing with deeper palpation. She is being admitted for observations for dehydration secondary to persistent nausea and vomiting. History - Past Medical History Cardiovascular: reports: Hypertension, High cholesterol, Atrial fibrillation Respiratory: reports: Sleep apnea Neuro: reports: Migraines, Other (denies seizure disorder) Endocrine/Autoimmune: reports: Other GI: reports: GERD SPA COORDINATOR: reports: None : reports: Incontinence, Frequency HEENT: reports: None Psych: reports: Depression, Anxiety Musculoskeletal: reports: Other Derm: reports: None MRSA Hx?: Yes - Past Surgical History General: reports: Cholecystectomy /SPA COORDINATOR: reports: Hysterectomy - Family & Social History Family History: Mother: , [place], Father: , CVA/TIA Living arrangement: At home Living Situation: With spouse/s.o. (her spouse is feeling well.) Social History Notes: Patient lives with her Jossue in [place]. They have 2 daughters together. One lives in [place] and takes care of her medications and heavier housework and the other daughter lives in [place]. She was a former smoker but quit in the 80s. She drinks 2-4 beers occasionally and denies illcit drug use. - Substance History Use: Uses substance without health or social issues: NONE - POLST Patient has POLST: No POLST Status: Full Code Meds/Allgy - Home Medications Home Medications: Ambulatory Orders Medication Instructions Recorded Confirmed Atorvastatin Calcium 40 mg PO QPM 10/26/12 05/19/20 carBAMazepine [TEGretol] 200 mg PO QPM 10/26/12 05/19/20 Aspirin EC [Ecotrin] 81 mg PO DAILY 07/20/13 05/19/20 Ca Cmb No.1/Vit D3/B-6/FA/B12 1 each PO DAILY 07/20/13 05/19/20 [Vitamin D3 1,000 Unit Tablet] Losartan Potassium [Cozaar] 50 mg PO DAILY 07/20/13 05/19/20 Nitroglycerin [Nitrostat] 0.4 mg SL Q5MIN PRN 04/18/15 05/19/20 Sertraline [Zoloft] 200 mg ORAL DAILY 04/18/15 05/19/20 Metoprolol Succinate [Kapspargo 200 mg PO DAILY 05/19/20 05/19/20 Sprinkle] Oxybutynin Chloride [Ditropan Xl] 20 mg PO DAILY 05/19/20 05/19/20 Rivaroxaban [Xarelto] 20 mg PO DAILY 05/19/20 05/19/20 dilTIAZem HCL [Diltiazem 24Hr ER 240 mg PO DAILY 05/19/20 05/19/20 (Xr)] - Allergies Allergies/Adverse Reactions: Allergies Allergy/AdvReac Type Severity Reaction Status Date / Time iodine Allergy Unknown Rash Verified 10/16/13 11:42 codeine [Codeine] AdvReac Unknown Nausea Verified 04/19/15 10:50 hydrocodone bitartrate * AdvReac Unknown Nausea Verified 04/19/15 10:51 [From Vicodin] Review of Systems - Constitutional Constitutional: reports: Fatigue, Fever, Chills, Malaise, Weakness, Poor appetite. denies: Diaphoresis, Night sweats, Weight gain, Weight loss - Eyes Eyes: reports: Corrective lenses. denies: Pain, Irritation, Blurred vision, Field loss, Vision loss - Ears, Nose & Throat Ears, Nose & Throat: denies: Ear pain, Hearing loss, Hearing aids, Vertigo, Nasal discharge, Sore throat - Cardiovascular Cariovascular: reports: Irregular heart rate, Palpitations. denies: Chest pain, Edema, Lightheadedness, Syncope, Exertional dyspnea, Decr. exercise tolerance, Orthopnea - Respiratory Respiratory: denies: Cough, Sputum production, Wheezing, Hemoptysis, Orthopnea, SOB at rest, SOB with exertion, Pleuritic pain - Gastrointestinal Gastrointestinal: reports: Abdominal pain, Diarrhea, Change in bowel habits, Nausea, Vomiting, Bile emesis, Reflux/heartburn, Poor appetite. denies: Black stools, Bloody stools, Babak blood emesis, Coffee grounds emesis, Bloating - Genitourinary Genitourinary: reports: Incontinence. denies: Dysuria, Frequency, Urgency, Hematuria, Flank pain - Musculoskeletal Musculoskeletal: denies: Muscle pain - Integumentary Integumentary: denies: Rash, Pruritis, Lesions, Dryness - Neurological Neurological: reports: General weakness, Memory problems (short-term memory loss per patient). denies: Focal weakness, Headache, Dizziness, Numbness, Seizures, Slurred speech - Psychiatric Psychiatric: reports: Anxiety - Endocrine Endocrine: denies: Polyuria, Polydypsia, Polyphagia - Hematologic/Lymphatic Hematologic/Lymphatic: denies: Anemia, Bruising Prior Level of Functionality: Patient is performs ADLs independently. She does not use any assistive devices to ambulate. She still drives to the store to get grocery and cooks at home. Exam - Vital Signs Reviewed Vital Signs: Yes Vital Signs: Vital Signs x48h Temp Pulse Resp BP Pulse Ox 05/19/20 09:28 117 H 16 150/87 H 98 05/19/20 08:42 117 H 18 133/73 H 95 05/19/20 08:12 111 H 13 135/71 H 98 05/19/20 07:42 118 H 10 L 132/63 H 100 05/19/20 06:47 125 H 24 139/76 H 99 05/19/20 05:17 36.6 C 103 H 18 129/85 H 100 05/19/20 05:15 36.7 C 103 H 19 129/85 H 100 - Physical Exam General Appearance: positive: No acute distress, Alert, Mild distress (Patient is an overweight older woman who appears to be in discomfort.) Eyes Bilateral: positive: Normal inspection, PERRL, EOMI, No lid inflammation, Conjunctivae nml, No scleral icterus ENT: positive: ENT inspection nml, Pharynx nml, Dry mucous membranes Neck: positive: Nml inspection, Trachea midline. negative: Thyromegaly, Lymphadenopathy (R), Lymphadenopathy (L), Stiff neck Respiratory: positive: Chest non-tender, No respiratory distress, Breath sounds nml. negative: Wheezes, Rales, Rhonchi Cardiovascular: positive: No murmur, Irregularly irregular, Tachycardia, Other (unable to assess for JVD due to thick neck). negative: Systolic murmur, Diastolic murmur, Gallop/S3, Gallop/S4 Peripheral Pulses: positive: 2+ Abdomen: positive: Tenderness, Guarding, Rebound, Other (hyperactive bowel sounds) Skin: positive: Color nml, No rash, Warm, Dry. negative: Cyanosis, Diaphoresis, Pallor Extremities: positive: Non-tender, Full ROM, Nml appearance, No pedal edema Neurologic/Psychiatric: positive: Oriented x3, Motor nml, Sensation nml, Mood/affect nml. negative: Facial droop, Slurred/abnml speech, Depressed mood/affect Conclusion/Plan - Problem List (1) Nausea vomiting and diarrhea Conclusion/Plan: Patient reports bouts of non-bloody vomiting and diarrhea since Tuesday. She has not had both since she has been in the hospital. Abdomen/pelvic CT ruled out bowel obstruction, ischemia, and showed no inflammatory changes. Her symptoms are consistent with gastroenteritis, possibly viral. Will rule out c. diff when able to sent a c. diff sample. Plan: Continue IV maintenance fluid and send c. diff sample when able. PRN odansetron is ordered for nausea and vomiting. (2) Abdominal pain Conclusion/Plan: Abdominal pain is improving with IV dilaudid, but has not completely gone away. Her pain may be seconday to viral gastroenteritis. Abdomen/pelvic CTA showed no signs of obstruction or ischemia. She's had a history of cholestectomy. Still waiting to collect stool sample to rule out c. diff. Plan: Will give PRN IV dilaudid for severe pain and transition to PO when she can tolerate PO medication. Qualifiers: Abdominal location: generalized Qualified Code(s): R10.84 - Generalized abdominal pain (3) Chronic atrial fibrillation Conclusion/Plan: Patient has chronic atrial fibrillation. Her heart rate is in the 100-120s. She has not been able to take her medication the last few days because of nausea. She is currently being anticoagulated on Xalreto. Will give her IV diltiazem to control her rate and start her on enoxaparin subQ for anticoagulation. Plan: restart her home medication when she is able to tolerate PO meds. (4) Hyperlipidemia Conclusion/Plan: Restart her atorvastatin when she is able to tolerate PO medications. (5) Hypokalemia Conclusion/Plan: Her potassium in the emergency room was 2.7. She received 10 mEq IV in the em ergency room and 40 mEq on the unit. Her hypokalemia is likely due to diarrhea and vomiting. Plan: Will recheck potassium level tonight and replace as needed. (6) Dehydration Conclusion/Plan: This is secondary to persistent GI loss from vomiting and diarrhea the last few days. She received a liter of NS and is receiving LR maintenance fluid. Plan: We will continue IV maintenance fluid and encourage PO fluid intake if tolerated. (7) Multiple sclerosis Conclusion/Plan: She is being followed by a neurologist at the [facility], [place]. Not on any medications for this currently. (8) Basilar artery stenosis Conclusion/Plan: This was noted by her PCP Dr. Josh Lux. - Lab Results Lab results reviewed: Yes Fish Bones: 05/19/20 05:19 05/19/20 05:19 - Diagnostic Imaging Results Diagnostic Imaging Results: positive: Final report reviewed - EKG Results EKG Interpreted Independently: Yes EKG Comparison: Old EKG unavailable Core Measures - Anticipated LOS I expect patient to be DC'd or transferred within 96 hours.: Yes - DVT/VTE - Prophylaxis VTE/DVT Device ordered at admit?: Yes VTE/DVT Prophylaxis med ordered at admit?: Yes
[2020-05-19] MEDS: POTASSIUM CHLOR 10 MEQ/100 ML 10 MEQ/100 ML BAG IV SCH ×4 (11:09→16:52)
[2020-05-19] MEDS: LACTATED RINGERS 1,000 ML IV SCH ×2 (11:09→21:06)
[2020-05-19] MEDS: HYDROmorphone 0.5 MG/0.5 ML SYRINGE IVP PRN ×5 (11:13→23:08)
[2020-05-19] MEDS: SODIUM CHLORIDE FLUSH 0.9% 10 ML SYRINGE IVP PRN (11:17)
--- NOTE | 2020-05-19 13:02 | PHARMACY PROGRESS NOTE ---
- Best Possible Medication History Admit Date and Time: 05/19/20 0931 Processed by: Pharmacy Medication History completed: Yes Patient Interview: Completed Secondary Source(s): Physician records (PATIENT INTERVIEWED BY JOINT CLEANING MACHINE OPERATOR. PATIENT ABLE TO CONFIRM HOME MEDICATIONS ), Pharmacy records, Insurance records As the person ultimately responsible for medication therapy, providers are able to order a medication from an existing home medication list in [facility] via the "Reconcile Routine" prior to Confirmation of that medication by academic support specialist. Such practice is discouraged except when the physician, in their clinical judgment, deems that a medical need exists for a medication without regard to previous use.
[2020-05-19] MEDS: diltiaZEM INJ 5 MG/ML VIAL IVP SCH ×2 (15:23→22:06)
[2020-05-19] MEDS: SODIUM CHLORIDE FLUSH 0.9% 10 ML SYRINGE IVP SCH (15:36)
[2020-05-19 19:56] LABS: CALCIUM 8.5 mg/dL (8.5-10.3); CREATININE 0.7 mg/dL (0.4-1.0)
[2020-05-19] MEDS: ENOXAPARIN 60 MG/0.6 ML SYRINGE SUBQ SCH (21:08)
[2020-05-20] MEDS: HYDROmorphone 0.5 MG/0.5 ML SYRINGE IVP PRN ×7 (01:10→15:20)
[2020-05-20] MEDS: SODIUM CHLORIDE FLUSH 0.9% 10 ML SYRINGE IVP SCH ×6 (01:11→23:56)
[2020-05-20] MEDS: ACETAMINOPHEN 325 MG TABLET PO PRN ×3 (04:21→13:41)
[2020-05-20] MEDS: diltiaZEM INJ 5 MG/ML VIAL IVP SCH (05:11)
[2020-05-20] MEDS: LACTATED RINGERS 1,000 ML IV SCH ×2 (06:48→15:15)
[2020-05-20 07:38] LABS: CALCIUM 8.5 mg/dL (8.5-10.3); CREATININE 0.6 mg/dL (0.4-1.0); MAGNESIUM 1.9 mg/dL (1.7-2.8)
[2020-05-20] MEDS ORDERED: NITROGLYCERIN SL 0.4 MG TABLET SL PRN (07:48)
[2020-05-20] MEDS: ENOXAPARIN 60 MG/0.6 ML SYRINGE SUBQ SCH (07:51)
[2020-05-20 07:55] LABS: BASOPHILS % (AUTO) 0.4 %; EOSINOPHILS # (AUTO) 0.1 10^3/uL (0.0-0.7); EOSINOPHILS % (AUTO) 2.3 %; HGB - HEMOGLOBIN 12.2 g/dL (12.0-16.0); LYMPHOCYTES % (AUTO) 17.4 %; MEAN CORPUSCULAR HEMOGLOBIN 34.2 pg (27.0-31.0); MEAN CORPUSCULAR HGB CONC 33.4 g/dL (32.0-36.0); MEAN CORPUSCULAR VOLUME 102.2 fL (81.0-99.0); MEAN PLATELET VOLUME 11.2 fL (7.9-10.8); MONOCYTES # (AUTO) 0.6 10^3/uL (0.0-1.0); MONOCYTES % (AUTO) 10.1 %; NEUTROPHILS # (AUTO) 3.9 10^3/uL (1.5-6.6); NEUTROPHILS % (AUTO) 69.4 %; PLT - PLATELET COUNT 117 10^3/uL (130-450); RED BLOOD COUNT 3.57 10^6/uL (4.20-5.40); RED CELL DISTRIBUTION WIDTH 13.1 % (12.0-15.0); WHITE BLOOD COUNT 5.6 x10^3/uL (4.8-10.8)
[2020-05-20] MEDS ORDERED: POTASSIUM CHLORIDE 20 MEQ TABLET PO ONE (08:01)
[2020-05-20 08:44] LABS: CARBAMAZEPINE (TEGRETOL) < 2.0 ug/mL
[2020-05-20] MEDS: SODIUM CHLORIDE FLUSH 0.9% 10 ML SYRINGE IVP PRN ×2 (08:58→09:00)
[2020-05-20] MEDS: PANTOPRAZOLE 40 MG VIAL IVP SCH (08:58)
[2020-05-20] MEDS: diltiaZEM CD 240 MG CAPSULE PO SCH (08:58)
[2020-05-20] MEDS: METOPROLOL SUCCINATE 50 MG TABLET PO SCH (09:00)
[2020-05-20] MEDS ORDERED: NON FORMULARY MED (Rivaroxaban [Xarelto] 20 MG Tablet) PO SCH (09:00)
[2020-05-20] MEDS: ONDANSETRON ODT 4 MG TABLET TL PRN (09:00)
--- NOTE | 2020-05-20 15:07 | PROVIDER PROGRESS NOTE ---
Assessment/Plan - Problem List (1) Nausea vomiting and diarrhea Assessment/Plan: Patient still report nauseated but vomiting is controlled, abdominal pain and diarrhea is in the control. CT and CTA of the abdomen was benign. Agree Her symptoms are consistent with virus gastroenteritis, We will continue intravenous IV fluids, bowel rest with clear liquid diet, laboratory and vital signs monitor (2) atrial fibrillation with RVR Conclusion/Plan: Patient tolerated p.o. medication. after we resume patient home metoprolol and Cardizem, patient's pulse is controlled now. 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 This was noted by her PCP Dr. Josh Lux. - Current Meds Current Meds: Current Medications Generic Name Dose Route Start Last Admin Trade Name Freq PRN Reason Stop Dose Admin Acetaminophen 650 mg 05/19/20 09:31 05/20/20 13:41 Acetaminophen 325 Mg Tablet PO 650 mg Q4HR PRN Administration Pain 1 to 4 Diltiazem HCl 240 mg 05/20/20 09:00 05/20/20 08:58 Diltiazem Cd 240 Mg Capsule PO 240 mg DAILY MILLICENT Administration Hydromorphone HCl 0.5 mg 05/19/20 09:34 05/20/20 12:41 Hydromorphone 0.5 Mg/0.5 Ml Syringe IVP 0.5 mg Q2H PRN Administration PAIN Lactated Ringer's 1,000 mls @ 100 mls/hr 05/19/20 10:00 05/20/20 06:48 Lr IV 100 mls/hr .Q10H MILLICENT Administration Metoprolol Succinate 200 mg 05/20/20 09:00 05/20/20 09:00 Metoprolol Succinate 50 Mg Tablet PO 200 mg DAILY MILLICENT Administration Ondansetron HCl 4 mg 05/19/20 09:31 05/20/20 09:00 Ondansetron Odt 4 Mg Tablet TL 4 mg Q6HR PRN Administration Nausea / Vomiting Ondansetron HCl 4 mg 05/19/20 09:31 05/19/20 15:10 Ondansetron 4 Mg/2 Ml Vial IVP 4 mg Q6HR PRN Administration Nausea / Vomiting Pantoprazole Sodium 40 mg 05/20/20 08:00 05/20/20 08:58 Pantoprazole 40 Mg Vial IVP 40 mg QDAC MILLICENT Administration Sodium Chloride 10 ml 05/19/20 09:31 05/20/20 09:00 Sodium Chloride Flush 0.9% 10 Ml Syringe IVP 10 ml PRN PRN Administration NEEDED PER PROVIDER ORDERS Sodium Chloride 10 ml 05/19/20 17:00 05/20/20 05:22 Sodium Chloride Flush 0.9% 10 Ml Syringe IVP 10 ml 0100,0900,1700 MILLICENT Administration - Lab Result Fish Bone Diagrams: 05/20/20 07:22 05/20/20 07:22 - Additional Planning My Orders: My Active Orders 05/20/20 07:48 Nitroglycerin [Nitrostat] 0.4 mg SL Q5MIN PRN 05/20/20 08:00 Pantoprazole [Protonix] 40 mg IVP QDAC 05/20/20 14:57 Telemetry- [RC] Q4HR 05/20/20 17:00 Rivaroxaban [Xarelto] 20 mg PO QDDINNER 05/20/20 21:00 carBAMazepine [TEGretol] 200 mg PO QPM Subjective - Subjective Patient Reports: Feeling Better Objective Vital Signs: Vital Signs - 24 hr 05/19/20 05/19/20 05/19/20 15:06 15:11 15:16 Temperature Heart Rate [ 138 H 121 H 121 H Brachial] Respiratory 16 17 17 Rate Blood Pressure Blood Pressure 188/103 H 168/98 H 163/53 H [Left Brachial artery] Blood Pressure [Right Brachial artery] O2 Saturation 05/19/20 05/19/20 05/19/20 15:21 15:36 15:51 Temperature 37.0 C Heart Rate [ 110 H 127 H 104 H Brachial] Respiratory 16 17 24 Rate Blood Pressure Blood Pressure 155/73 H 147/67 H 136/97 H [Left Brachial artery] Blood Pressure [Right Brachial artery] O2 Saturation 93 05/19/20 05/19/20 05/19/20 16:06 20:08 22:06 Temperature 36.6 C Heart Rate [ 110 H 118 H 122 H Brachial] Respiratory 20 Rate Blood Pressure 165/87 H Blood Pressure 137/61 H 155/88 H [Left Brachial artery] Blood Pressure 165/87 H [Right Brachial artery] O2 Saturation 94 12/14/20 12/14/20 12/14/20 22:11 22:16 22:21 Temperature Heart Rate [ 105 H 89 91 Brachial] Respiratory Rate Blood Pressure Blood Pressure [Left Brachial artery] Blood Pressure 149/74 H 141/72 H 151/69 H [Right Brachial artery] O2 Saturation 05/19/20 05/19/20 05/19/20 22:36 22:51 23:06 Temperature Heart Rate [ 88 94 112 H Brachial] Respiratory Rate Blood Pressure Blood Pressure [Left Brachial artery] Blood Pressure 154/67 H 156/73 H 158/83 H [Right Brachial artery] O2 Saturation 05/20/20 05/20/20 05/20/20 00:59 01:29 04:04 Temperature 37.3 C 37.0 C Heart Rate [ 112 H 101 H 118 H Brachial] Respiratory 20 16 18 Rate Blood Pressure Blood Pressure [Left Brachial artery] Blood Pressure 194/95 H 140/97 H 170/114 H [Right Brachial artery] O2 Saturation 95 05/20/20 05/20/20 05/20/20 05:09 05:11 05:20 Temperature 37.2 C Heart Rate [ 127 H 101 H Brachial] Respiratory 20 20 Rate Blood Pressure 182/89 H Blood Pressure [Left Brachial artery] Blood Pressure 182/89 H 133/68 H [Right Brachial artery] O2 Saturation 97 05/20/20 05/20/20 05/20/20 05:21 05:26 05:35 Temperature Heart Rate [ 114 H 103 H Brachial] Respiratory 20 20 Rate Blood Pressure Blood Pressure [Left Brachial artery] Blood Pressure 149/62 H 144/63 H 129/57 L [Right Brachial artery] O2 Saturation 05/20/20 05/20/20 05/20/20 05:46 06:01 06:14 Temperature Heart Rate [ 124 H 120 H Brachial] Respiratory Rate Blood Pressure Blood Pressure [Left Brachial artery] Blood Pressure 149/72 H 143/89 H 139/73 H [Right Brachial artery] O2 Saturation 05/20/20 05/20/20 08:21 13:00 Temperature 36.3 C L 37 C Heart Rate [ 126 H 98 Brachial] Respiratory 18 16 Rate Blood Pressure Blood Pressure [Left Brachial artery] Blood Pressure 154/76 H 148/89 H [Right Brachial artery] O2 Saturation 98 94 Oxygen O2 Source Room air I&O (Last 24 Hrs): Intake and Output Totals x24h 05/18/20 05/19/20 05/20/20 23:59 23:59 23:59 Intake Total 4636.667 878.333 Output Total 500 1450 Balance 4136.667 -571.667 General: Alert, Oriented x3, No acute distress HEENT: Atraumatic, PERRLA Neck: Supple Lymphatic: no adenopathy Neuro: Alert, Non Focal, Oriented Times 3 Cardiovascular: Regular rate, Normal S1, Normal S2 Respiratory: Chest non-tender, No respiratory distress Abdomen: Normal bowel sounds, Soft, No tenderness Extremities: Normal pulses - Results Results: Laboratory Results WBC 5.6 x10^3/uL (4.8-10.8) 05/20/20 07:22 RBC 3.57 10^6/uL (4.20-5.40) L 05/20/20 07:22 Hgb 12.2 g/dL (12.0-16.0) 05/20/20 07:22 Hct 36.5 % (37.0-47.0) L 05/20/20 07:22 MCV 102.2 fL (81.0-99.0) H 05/20/20 07:22 MCH 34.2 pg (27.0-31.0) H 05/20/20 07:22 MCHC 33.4 g/dL (32.0-36.0) 05/20/20 07:22 RDW 13.1 % (12.0-15.0) 05/20/20 07:22 Plt Count 117 10^3/uL (130-450) L 05/20/20 07:22 MPV 11.2 fL (7.9-10.8) H 05/20/20 07:22 Neut # (Auto) 3.9 10^3/uL (1.5-6.6) 05/20/20 07:22 Lymph # (Auto) 1.0 10^3/uL (1.5-3.5) L 05/20/20 07:22 [place] # (Auto) 0.6 10^3/uL (0.0-1.0) 05/20/20 07:22 Eos # (Auto) 0.1 10^3/uL (0.0-0.7) 05/20/20 07:22 Baso # (Auto) 0.0 10^3/uL (0.0-0.1) 05/20/20 07:22 Absolute Nucleated RBC 0.00 x10^3/uL 05/20/20 07:22 Nucleated RBC % 0.0 /100WBC 05/20/20 07:22 PT 13.5 secs (9.9-12.6) H 05/19/20 05:19 INR 1.2 (0.8-1.2) 05/19/20 05:19 APTT 25.1 secs (24.9-33.3) 05/19/20 05:19 Sodium 139 mmol/L (135-145) 05/20/20 07:22 Potassium 3.2 mmol/L (3.5-5.0) L 05/20/20 07:22 Chloride 104 mmol/L (101-111) 05/20/20 07:22 Carbon Dioxide 22 mmol/L (21-32) 05/20/20 07:22 Anion Gap 13.0 (6-13) 05/20/20 07:22 BUN 11 mg/dL (6-20) 05/20/20 07:22 Creatinine 0.6 mg/dL (0.4-1.0) 05/20/20 07:22 Estimated GFR (MDRD) 98 (>89) 05/20/20 07:22 Glucose 101 mg/dL (70-100) H 05/20/20 07:22 Lactic Acid 2.0 mmol/L (0.5-2.2) 05/19/20 07:37 Calcium 8.5 mg/dL (8.5-10.3) 05/20/20 07:22 Magnesium 1.9 mg/dL (1.7-2.8) 05/20/20 07:22 Total Bilirubin 1.0 mg/dL (0.2-1.0) 05/19/20 05:19 AST 21 IU/L (10-42) 05/19/20 05:19 ALT 20 IU/L (10-60) 05/19/20 05:19 Alkaline Phosphatase 81 IU/L (42-121) 05/19/20 05:19 Troponin I High Sens 8.0 ng/L (2.3-14.8) 05/19/20 07:21 Total Protein 6.8 g/dL (6.7-8.2) 05/19/20 05:19 Albumin 4.0 g/dL (3.2-5.5) 05/19/20 05:19 Globulin 2.8 g/dL (2.1-4.2) 05/19/20 05:19 Albumin/Globulin Ratio 1.4 (1.0-2.2) 05/19/20 05:19 Lipase 23 U/L (22-51) 05/19/20 05:19 Urine Color YELLOW 05/19/20 09:12 Urine Clarity HAZY (CLEAR) 05/19/20 09:12 Urine pH 5.5 PH (5.0-7.5) 05/19/20 09:12 Ur Specific [place] 1.010 (1.002-1.030) 05/19/20 09:12 Urine Protein NEGATIVE mg/dL (NEGATIVE) 05/19/20 09:12 Urine Glucose (UA) NEGATIVE mg/dL (NEGATIVE) 05/19/20 09:12 Urine Ketones NEGATIVE mg/dL (NEGATIVE) 05/19/20 09:12 Urine Occult Blood NEGATIVE (NEGATIVE) 05/19/20 09:12 Urine Nitrite POSITIVE (NEGATIVE) H 05/19/20 09:12 Urine Bilirubin NEGATIVE (NEGATIVE) 05/19/20 09:12 Urine Urobilinogen 0.2 (NORMAL) E.U./dL (NORMAL) 05/19/20 09:12 Ur Leukocyte Esterase SMALL (NEGATIVE) H 05/19/20 09:12 Urine RBC 0-5 /HPF (0-5) 05/19/20 09:12 Urine WBC 11-25 /HPF (0-5) H 05/19/20 09:12 Ur Squamous Epith Cells FEW Squamous (<= Few) 05/19/20 09:12 Urine Bacteria Few /HPF (None Seen) 05/19/20 09:12 Ur Microscopic Review INDICATED 05/19/20 09:12 Urine Culture Comments INDICATED 05/19/20 09:12 Nasal Adenovirus (PCR) NOT DETECTED 05/19/20 05:19 Nasal B. parapertussis DNA (PCR) NOT DETECTED 05/19/20 05:19 Nasal Coronavir 229E PCR NOT DETECTED 05/19/20 05:19 Nasal Coronavir HKU1 PCR NOT DETECTED 05/19/20 05:19 Nasal Coronavir NL63 PCR NOT DETECTED 05/19/20 05:19 Nasal Coronavir OC43 PCR NOT DETECTED 05/19/20 05:19 Nasal Enterovir/Rhinovir PCR NOT DETECTED 05/19/20 05:19 Nasal Influenza B PCR NOT DETECTED 05/19/20 05:19 Nasal Influenza A PCR NOT DETECTED 05/19/20 05:19 Nasal Parainfluen 1 PCR NOT DETECTED 05/19/20 05:19 Nasal Parainfluen 2 PCR NOT DETECTED 05/19/20 05:19 Nasal Parainfluen 3 PCR NOT DETECTED 05/19/20 05:19 Nasal Parainfluen 4 PCR NOT DETECTED 05/19/20 05:19 Nasal RSV (PCR) NOT DETECTED 05/19/20 05:19 Nasal B.pertussis DNA PCR NOT DETECTED 05/19/20 05:19 Nasal C.pneumoniae (PCR) NOT DETECTED 05/19/20 05:19 [place] Human Metapneumo PCR NOT DETECTED 05/19/20 05:19 Nasal M.pneumoniae (PCR) NOT DETECTED 05/19/20 05:19 Nasal SARS-CoV-2 (PCR) NOT DETECTED 05/19/20 05:19 Last Dose Date UNKNOWN 05/20/20 07:22 Last Dose Time UNKNOWN 05/20/20 07:22 Carbamazepine < 2.0 ug/mL 05/20/20 07:22 - Procedures Procedures: Procedures OTHER LOCAL DESTRUC SKIN (10/26/12) ABX Reporting Has patient been on IV antibiotics over the past 48 hours?: No Current Medications - Current Medications Current Medications: Active Medications Acetaminophen (Acetaminophen 325 Mg Tablet) 650 mg PO Q4HR PRN PRN Reason: Pain 1 to 4 Last Admin: 05/20/20 13:41 Dose: 650 mg Documented by: Carbamazepine (Carbamazepine 200 Mg Tablet) 200 mg PO QPM MILLICENT Diltiazem HCl (Diltiazem Cd 240 Mg Capsule) 240 mg PO DAILY MILLICENT Last Admin: 05/20/20 08:58 Dose: 240 mg Documented by: Hydromorphone HCl (Hydromorphone 0.5 Mg/0.5 Ml Syringe) 0.5 mg IVP Q2H PRN PRN Reason: PAIN Last Admin: 05/20/20 12:41 Dose: 0.5 mg Documented by: Lactated Ringer's (Lr) 1,000 mls @ 83.3 mls/hr IV .Q12H1M [facility] Stop: 05/21/20 03:08 Last Admin: 05/20/20 15:15 Dose: 83.3 mls/hr Documented by: Losartan Potassium (Losartan 50 Mg Tablet) 50 mg PO DAILY [facility] Metoprolol Succinate (Metoprolol Succinate 50 Mg Tablet) 200 mg PO DAILY [facility] Last Admin: 05/20/20 09:00 Dose: 200 mg Documented by: Nitroglycerin (Nitroglycerin Sl 0.4 Mg Tablet) 0.4 mg SL Q5MIN PRN PRN Reason: Chest Pain Ondansetron HCl (Ondansetron Odt 4 Mg Tablet) 4 mg TL Q6HR PRN PRN Reason: Nausea / Vomiting Last Admin: 05/20/20 09:00 Dose: 4 mg Documented by: Ondansetron HCl (Ondansetron 4 Mg/2 Ml Vial) 4 mg IVP Q6HR PRN PRN Reason: Nausea / Vomiting Last Admin: 05/19/20 15:10 Dose: 4 mg Documented by: Pantoprazole Sodium (Pantoprazole 40 Mg Vial) 40 mg IVP QDAC [facility] Last Admin: 05/20/20 08:58 Dose: 40 mg Documented by: Rivaroxaban (Rivaroxaban 10 Mg Tablet) 20 mg PO QDDINNER [facility] Sertraline HCl (Sertraline 25 Mg Tablet) 200 mg PO DAILY [facility] Sodium Chloride (Sodium Chloride Flush 0.9% 10 Ml Syringe) 10 ml IVP PRN PRN PRN Reason: NEEDED PER PROVIDER ORDERS Last Admin: 05/20/20 09:00 Dose: 10 ml Documented by: Sodium Chloride (Sodium Chloride Flush 0.9% 10 Ml Syringe) 10 ml IVP 0100,0900,1700 [facility] Last Admin: 05/20/20 05:22 Dose: 10 ml Documented by: Atorvastatin Calcium 40 mg PO QPM 10/26/12 carBAMazepine [TEGretol] 200 mg PO QPM 10/26/12 Aspirin EC [Ecotrin] 81 mg PO DAILY 07/20/13 Ca Cmb No.1/Vit D3/B-6/FA/B12 [Vitamin D3 1,000 Unit Tablet] 1 each PO DAILY 07/20/13 Losartan Potassium [Cozaar] 50 mg PO DAILY 07/20/13 Nitroglycerin [Nitrostat] 0.4 mg SL Q5MIN PRN 04/18/15 Sertraline [Zoloft] 200 mg ORAL DAILY 04/18/15 Metoprolol Succinate [[place]sp[place] Sprinkle] 200 mg PO DAILY 05/19/20 Oxybutynin Chloride [Ditropan Xl] 20 mg PO DAILY 05/19/20 Rivaroxaban [Xarelto] 20 mg PO DAILY 05/19/20 dilTIAZem HCL [Diltiazem 24Hr ER (Xr)] 240 mg PO DAILY 05/19/20
[2020-05-20] MEDS: RIVAROXABAN 10 MG TABLET PO SCH (17:28)
--- NOTE | 2020-05-20 18:07 | CONSULTATION NOTE ---
Referring Provider Name of Referring Provider:: NEIL Rivera Consult Date: 05/20/20 Chief Complaint - Chief Complaint Chief Complaint: Abdominal pain with nausea and vomiting History of Present Illness - Admitted From Admitted From:: ED - History Obtained From Records Reviewed: Admission notes History obtained from: Patient and providers Exam Limitations: None - History of Present Illness HPI Comment/Other: Pleasant 74-year-old lady who presented to the emergency room yesterday complaining of 3 days of nausea vomiting and diarrhea. She reports that her pain was unbearable and 10 out of 10 at its most severe. She has been having cramping and diarrhea which has now subsided. She reports just a feeling of of pain and soreness under her ribs now. She is no longer nauseated but has not been able to take p.o. today as she is just not hungry and still has some anorexia.She denies any known sick contacts. She denies any similar symptoms in the past. Prior to this she reports that her weight was stable and she was feeling well.Since admission she has been placed on IV hydration. She has been receiving Dilaudid for pain and she has asked for it approximately every 2 hours.She has not been able to produce a stool sample. Bio fire study for COVID-19, Rhinovirus, enterovirus, influenza, and parainfluenza were all negative.The patient has been afebrile since admission. It is notable that she was in atrial fibrillation with rapid ventricular response at the time of admission and this is since resolved with treatment. Sneha continues to express discomfort but reports that her symptoms are different than they were at the time of admission. History - Past Medical History Cardiovascular: reports: Hypertension, High cholesterol, Atrial fibrillation Respiratory: reports: Sleep apnea Neuro: reports: Migraines, Other (denies seizure disorder) Endocrine/Autoimmune: reports: Other GI: reports: GERD SURGICAL DENTAL ASSISTANT: reports: None : reports: Incontinence, Frequency HEENT: reports: None Psych: reports: Depression, Anxiety Musculoskeletal: reports: Other Derm: reports: None MRSA Hx?: Yes - Past Surgical History General: reports: Cholecystectomy /SURGICAL DENTAL ASSISTANT: reports: Hysterectomy - Family & Social History Family History: Mother: , [place], Father: , CVA/TIA Living arrangement: At home Living Situation: With spouse/s.o. (her spouse is feeling well.) Social History Notes: Patient lives with her Jossue in [place]. They have 2 daughters together. One lives in [place] and takes care of her medications and heavier housework and the other daughter lives in [place]. She was a former smoker but quit in the 80s. She drinks 2-4 beers occasionally and denies illcit drug use. - Substance History Use: Uses substance without health or social issues: NONE - POLST Patient has POLST: No POLST Status: Full Code Meds/Allgy - Home Medications Home Medications: Ambulatory Orders Medication Instructions Recorded Confirmed Atorvastatin Calcium 40 mg PO QPM 10/26/12 05/19/20 carBAMazepine [TEGretol] 200 mg PO QPM 10/26/12 05/19/20 Aspirin EC [Ecotrin] 81 mg PO DAILY 07/20/13 05/19/20 Ca Cmb No.1/Vit D3/B-6/FA/B12 1 each PO DAILY 07/20/13 05/19/20 [Vitamin D3 1,000 Unit Tablet] Losartan Potassium [Cozaar] 50 mg PO DAILY 07/20/13 05/19/20 Nitroglycerin [Nitrostat] 0.4 mg SL Q5MIN PRN 04/18/15 05/19/20 Sertraline [Zoloft] 200 mg ORAL DAILY 04/18/15 05/19/20 Metoprolol Succinate [Kapspargo 200 mg PO DAILY 05/19/20 05/19/20 Sprinkle] Oxybutynin Chloride [Ditropan Xl] 20 mg PO DAILY 05/19/20 05/19/20 Rivaroxaban [Xarelto] 20 mg PO DAILY 05/19/20 05/19/20 dilTIAZem HCL [Diltiazem 24Hr ER 240 mg PO DAILY 05/19/20 05/19/20 (Xr)] - Allergies Allergies/Adverse Reactions: Allergies Allergy/AdvReac Type Severity Reaction Status Date / Time iodine Allergy Unknown Rash Verified 10/16/13 11:42 codeine [Codeine] AdvReac Unknown Nausea Verified 04/19/15 10:50 hydrocodone bitartrate * AdvReac Unknown Nausea Verified 04/19/15 10:51 [From Vicodin] Review of Systems - Constitutional Constitutional: reports: Fatigue, Malaise, Weakness, Poor appetite. denies: Fever, Chills, Diaphoresis, Night sweats - Eyes Eyes: denies: Pain, Blurred vision - Ears, Nose & Throat Ears, Nose & Throat: denies: Tinnitus, Vertigo - Cardiovascular Cariovascular: reports: Irregular heart rate, Palpitations, Lightheadedness. denies: Chest pain - Respiratory Respiratory: reports: Cough, SOB with exertion. denies: Sputum production, Wheezing, Hemoptysis, Orthopnea - Gastrointestinal Gastrointestinal: reports: Abdominal pain, Abdominal distention, Diarrhea, Change in bowel habits, Nausea, Vomiting, Bloating, Poor appetite - Genitourinary Genitourinary: denies: Dysuria, Frequency - Musculoskeletal Musculoskeletal: denies: Muscle pain, Back pain - Integumentary Integumentary: denies: Rash - All Other Systems All Other Systems: reports: Reviewed and negative Exam - Vital Signs Reviewed Vital Signs: Yes Vital Signs: Vital Signs x48h Temp Pulse Resp BP Pulse Ox 05/20/20 16:26 36.5 C 83 16 155/92 H 92 05/20/20 13:00 37 C 98 16 148/89 H 94 - Physical Exam General Appearance: positive: Alert, Mild distress Eyes Bilateral: positive: Normal inspection, PERRL, EOMI ENT: positive: ENT inspection nml, No signs of dehydration Respiratory: positive: Chest non-tender, No respiratory distress Cardiovascular: positive: Regular rate & rhythm Peripheral Pulses: positive: 0 Abdomen: positive: Nml bowel sounds, Tenderness, Guarding, Other (Abdomen is soft but distended. Tympanic to percussion in bilateral upper quadrants. Less tender in bilateral lower quadrants. No rebound but some voluntary guarding. Active bowel sounds.). negative: No distention, Rebound, Mass Back: positive: Nml inspection. negative: CVA tenderness (R), CVA tenderness (L) Skin: positive: Color nml Extremities: positive: Non-tender Neurologic/Psychiatric: positive: Oriented x3 Conclusion and Plan - Lab Results Laboratory Results 05/20/20 07:22: Last Dose Date UNKNOWN, Last Dose Time UNKNOWN, Carbamazepine < 2.0 05/20/20 07:22: Sodium 139, Potassium 3.2 L, Chloride 104, Carbon Dioxide 22, Anion Gap 13.0, BUN 11, Creatinine 0.6, Estimated GFR (MDRD) 98, Glucose 101 H, Calcium 8.5, Magnesium 1.9 05/20/20 07:22: WBC 5.6, RBC 3.57 L, Hgb 12.2, Hct 36.5 L, MCV 102.2 H, MCH 34.2 H, MCHC 33.4, RDW 13.1, Plt Count 117 L, MPV 11.2 H, Neut # (Auto) 3.9, Lymph # (Auto) 1.0 L, [place] # (Auto) 0.6, Eos # (Auto) 0.1, Baso # (Auto) 0.0, Absolute Nucleated RBC 0.00, Nucleated RBC % 0.0 05/19/20 19:42: Sodium 140, Potassium 4.4, Chloride 109, Carbon Dioxide 22, Anion Gap 9.0, BUN 14, Creatinine 0.7, Estimated GFR (MDRD) 82 L, Glucose 103 H, Calcium 8.5 05/19/20 09:12: Urine Color YELLOW, Urine Clarity HAZY, Urine pH 5.5, Ur Specific [place] 1.010, Urine Protein NEGATIVE, Urine Glucose (UA) NEGATIVE, Urine Ketones NEGATIVE, Urine Occult Blood NEGATIVE, Urine Nitrite POSITIVE H, Urine Bilirubin NEGATIVE, Urine Urobilinogen 0.2 (NORMAL), Ur Leukocyte Esterase SMALL H, Urine RBC 0-5, Urine WBC 11-25 H, Ur Squamous Epith Cells FEW Squamous, Urine Bacteria Few, Ur Microscopic Review INDICATED, Urine Culture Comments INDICATED 05/19/20 07:37: Lactic Acid 2.0 05/19/20 07:21: Troponin I High Sens 8.0 05/19/20 05:19: Troponin I High Sens 7.5 05/19/20 05:19: Last Dose Date , Last Dose Time 2400, Carbamazepine 4.1 05/19/20 05:19: Nasal Adenovirus (PCR) NOT DETECTED, Nasal B. parapertussis DNA (PCR) NOT DETECTED, Nasal Coronavir 229E PCR NOT DETECTED, Nasal Coronavir HKU1 PCR NOT DETECTED, Nasal Coronavir NL63 PCR NOT DETECTED, Nasal Coronavir OC43 PCR NOT DETECTED, Nasal Enterovir/Rhinovir PCR NOT DETECTED, Nasal Influenza B PCR NOT DETECTED, Nasal Influenza A PCR NOT DETECTED, Nasal Parainfluen 1 PCR NOT DETECTED, Nasal Parainfluen 2 PCR NOT DETECTED, Nasal Parainfluen 3 PCR NOT DETECTED, Nasal Parainfluen 4 PCR NOT DETECTED, Nasal RSV (PCR) NOT DETECTED, Nasal B.pertussis DNA PCR NOT DETECTED, Nasal C.pneumoniae (PCR) NOT DETECTED, Thai Human Metapneumo PCR NOT DETECTED, Nasal M.pneumoniae (PCR) NOT DETECTED, Nasal SARS-CoV-2 (PCR) NOT DETECTED 05/19/20 05:19: Lactic Acid 2.7 H 05/19/20 05:19: Sodium 139, Potassium 2.7 L, Chloride 104, Carbon Dioxide 23, Anion Gap 12.0, BUN 20, Creatinine 0.9, Estimated GFR (MDRD) 61 L, Glucose 118 H, Calcium 8.9, Magnesium 2.1, Total Bilirubin 1.0, AST 21, ALT 20, Alkaline Phosphatase 81, Total Protein 6.8, Albumin 4.0, Globulin 2.8, Albumin/Globulin Ratio 1.4, Lipase 23 05/19/20 05:19: PT 13.5 H, INR 1.2, APTT 25.1 05/19/20 05:19: WBC 4.7 L, RBC 4.03 L, Hgb 13.6, Hct 39.8, MCV 98.8, MCH 33.7 H, MCHC 34.2, RDW 13.1, Plt Count 137, MPV 11.0 H, Neut # (Auto) 3.1, Lymph # ( Auto) 1.0 L, [place] # (Auto) 0.6, Eos # (Auto) 0.1, Baso # (Auto) 0.0, Absolute Nucleated RBC 0.00, Nucleated RBC % 0.0 Lab Results x24hrs 05/20/20 05/20/20 05/20/20 07:22 07:22 07:22 WBC 5.6 x10^3/uL x10^3/uL (4.8-10.8) RBC 3.57 10^6/uL L 10^6/uL (4.20-5.40) Hgb 12.2 g/dL g/dL (12.0-16.0) Hct 36.5 % L % (37.0-47.0) MCV 102.2 fL H fL (81.0-99.0) MCH 34.2 pg H pg (27.0-31.0) MCHC 33.4 g/dL g/dL (32.0-36.0) RDW 13.1 % % (12.0-15.0) Plt Count 117 10^3/uL L 10^3/uL (130-450) MPV 11.2 fL H fL (7.9-10.8) Neut # (Auto) 3.9 10^3/uL 10^3/uL (1.5-6.6) Lymph # (Auto) 1.0 10^3/uL L 10^3/uL (1.5-3.5) [place] # (Auto) 0.6 10^3/uL 10^3/uL (0.0-1.0) Eos # (Auto) 0.1 10^3/uL 10^3/uL (0.0-0.7) Baso # (Auto) 0.0 10^3/uL 10^3/uL (0.0-0.1) Absolute Nucleated RBC 0.00 x10^3/uL x10^3/uL Nucleated RBC % 0.0 /100WBC /100WBC Sodium 139 mmol/L mmol/L (135-145) Potassium 3.2 mmol/L L mmol/L (3.5-5.0) Chloride 104 mmol/L mmol/L (101-111) Carbon Dioxide 22 mmol/L mmol/L (21-32) Anion Gap 13.0 (6-13) BUN 11 mg/dL mg/dL (6-20) Creatinine 0.6 mg/dL mg/dL (0.4-1.0) Estimated GFR (MDRD) 98 (>89) Glucose 101 mg/dL H mg/dL (70-100) Calcium 8.5 mg/dL mg/dL (8.5-10.3) Magnesium 1.9 mg/dL mg/dL (1.7-2.8) Last Dose Date UNKNOWN Last Dose Time UNKNOWN Carbamazepine < 2.0 ug/mL ug/mL 05/19/20 19:42 WBC RBC Hgb Hct MCV MCH MCHC RDW Plt Count MPV Neut # (Auto) Lymph # (Auto) [place] # (Auto) Eos # (Auto) Baso # (Auto) Absolute Nucleated RBC Nucleated RBC % Sodium 140 mmol/L mmol/L (135-145) Potassium 4.4 mmol/L mmol/L (3.5-5.0) Chloride 109 mmol/L mmol/L (101-111) Carbon Dioxide 22 mmol/L mmol/L (21-32) Anion Gap 9.0 (6-13) BUN 14 mg/dL mg/dL (6-20) Creatinine 0.7 mg/dL mg/dL (0.4-1.0) Estimated GFR (MDRD) 82 L (>89) Glucose 103 mg/dL H mg/dL (70-100) Calcium 8.5 mg/dL mg/dL (8.5-10.3) Magnesium Last Dose Date Last Dose Time Carbamazepine - Diagnostic Imaging Results Diagnostic Imaging Results: positive: Final report reviewed Diagnostic Imaging Results Comments: Significant amount of liquefied stool within the colon is noted on CT done May 19. Known angiomyolipoma is unchanged from prior study.No evidence of ischemia or inflammation within the abdomen - EKG Results EKG Interpreted Independently: No - Diagnosis Diagnosis: Likely some sort of viral gastroenteritis, perhaps norovirus. No evidence of surgical abdomen. - Plan Plan: 1. Recommend discontinuation of Dilaudid and attempted nonnarcotic pain control with scheduled Toradol and Tylenol and Robaxin as needed. 2. Plain films of the abdomen in the a.m. 3. Start simethicone for colonic gaseous distention 4. Resume Zoloft as she is on a significant dose and may be experiencing some element of serotonin syndrome contributing to this issue 5. Stool studies for norovirus when the patient can provide a sample. 6. Diet as desired by patient.
[2020-05-20] MEDS: KETOROLAC 15 MG/ML VIAL IVP SCH ×2 (20:04→23:56)
[2020-05-20] MEDS: ACETAMINOPHEN 1,000 MG/100 ML 100 ML IV SCH (21:00)
[2020-05-20] MEDS: carBAMazepine 200 MG TABLET PO SCH (21:08)
[2020-05-20] MEDS: methocarbamoL 500 MG TABLET PO PRN (21:08)
[2020-05-21] MEDS: ONDANSETRON ODT 4 MG TABLET TL PRN (00:07)
[2020-05-21] MEDS: ACETAMINOPHEN 1,000 MG/100 ML 100 ML IV SCH (03:04)
[2020-05-21] MEDS: LACTATED RINGERS 1,000 ML IV SCH (03:04)
[2020-05-21] MEDS: methocarbamoL 500 MG TABLET PO PRN ×2 (03:28→11:12)
[2020-05-21 05:49] LABS: BASOPHILS % (AUTO) 0.3 %; EOSINOPHILS # (AUTO) 0.2 10^3/uL (0.0-0.7); EOSINOPHILS % (AUTO) 3.5 %; HGB - HEMOGLOBIN 12.8 g/dL (12.0-16.0); LYMPHOCYTES # (AUTO) 0.8 10^3/uL (1.5-3.5); MEAN CORPUSCULAR HEMOGLOBIN 33.6 pg (27.0-31.0); MEAN CORPUSCULAR HGB CONC 33.9 g/dL (32.0-36.0); MEAN CORPUSCULAR VOLUME 99.2 fL (81.0-99.0); MEAN PLATELET VOLUME 11.3 fL (7.9-10.8); MONOCYTES # (AUTO) 0.5 10^3/uL (0.0-1.0); MONOCYTES % (AUTO) 8.3 %; NEUTROPHILS # (AUTO) 4.4 10^3/uL (1.5-6.6); NEUTROPHILS % (AUTO) 73.6 %; PLT - PLATELET COUNT 137 10^3/uL (130-450); RED BLOOD COUNT 3.81 10^6/uL (4.20-5.40); RED CELL DISTRIBUTION WIDTH 12.9 % (12.0-15.0)
[2020-05-21 05:56] LABS: CALCIUM 8.9 mg/dL (8.5-10.3); CREATININE 0.6 mg/dL (0.4-1.0); MAGNESIUM 1.8 mg/dL (1.7-2.8)
[2020-05-21] MEDS: SODIUM CHLORIDE FLUSH 0.9% 10 ML SYRINGE IVP PRN (06:36)
[2020-05-21] MEDS: SODIUM CHLORIDE FLUSH 0.9% 10 ML SYRINGE IVP SCH (06:36)
[2020-05-21] MEDS: PANTOPRAZOLE 40 MG VIAL IVP SCH (06:36)
[2020-05-21] MEDS: KETOROLAC 15 MG/ML VIAL IVP SCH ×3 (06:36→18:07)
[2020-05-21] MEDS ORDERED: POTASSIUM CHLORIDE 20 MEQ TABLET PO ONE (07:47)
[2020-05-21] MEDS: SERTRALINE 50 MG TABLET PO SCH (08:38)
[2020-05-21] MEDS: diltiaZEM CD 240 MG CAPSULE PO SCH (08:39)
[2020-05-21] MEDS: METOPROLOL SUCCINATE 50 MG TABLET PO SCH (08:39)
[2020-05-21] MEDS: ACETAMINOPHEN 325 MG TABLET PO PRN (08:39)
[2020-05-21] MEDS: LOSARTAN 50 MG TABLET PO SCH (08:39)
[2020-05-21] MEDS: polyethylene glycoL 3350 17 GM PACKET PO SCH (08:39)
--- NOTE | 2020-05-21 09:49 | XRAY Report ---
PROCEDURE: Abdomen Acute INDICATIONS: Abdominal pain and distension TECHNIQUE: One view chest and two views of the abdomen were acquired. COMPARISON: Prior ultrasound dated 05/20/[address] abdomen/pelvis 05/19/2020 FINDINGS: Surgical changes and devices: Postsurgical clips of cholecystectomy noted right upper quadrant. Chest: Lungs are clear. Heart size is nonspecific. No pleural effusions. No pneumoperitoneum. Abdomen: Bowel gas pattern is normal. No suspicious calcifications. Visualized solid organ contour s appear normal. Bones: No suspicious bony lesions. IMPRESSION: Nonspecific bowel gas pattern, no free air or evidence of intestinal obstruction. Reviewed by: Troy Castillo MD on 05/21/2020 9:48 AM PST Approved by: Troy Castillo MD on 05/21/2020 9:48 AM PST Station ID: [id number]
[2020-05-21] MEDS ORDERED: SIMETHICONE CHEW 80 MG TABLET PO ONE ×2 (11:00→17:00)
--- NOTE | 2020-05-21 15:53 | PROVIDER PROGRESS NOTE ---
Assessment/Plan - Problem List (1) Diarrhea Assessment/Plan: Nurse report Patient Had continuously diarrhea without bloody stool. We will send the sample for C. difficile test. We will give patient intravenous IV fluids, We will continue laboratory and vital signs monitor patient. (2) Nausea and vomiting 05/21 Patient reported she feel better for nausea, no vomiting Patient still report nauseated but vomiting is controlled, abdominal pain and diarrhea is in the control. CT and CTA of the abdomen was benign. Agree Her symptoms are consistent with virus gastroenteritis, We will continue intravenous IV fluids, bowel rest with clear liquid diet, laboratory and vital signs monitor (3)Abdominal pain Patient reported Abdominal pain is better Significant today. CT and CTA of the abdomen Does not indicate ischemic Or inflammatory disease. Consult with surgeon, we will switch patient pain medication from Dilaudid to Toradol and muscle spasm, Continue Simethcorn PRN, Stool culture is pending. (4) atrial fibrillation with RVR Conclusion/Plan: Patient tolerated p.o. medication. after we resume patient home metoprolol and Cardizem, patient's pulse is controlled now. 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 This was noted by her PCP Dr. Josh Lux. - Current Meds Current Meds: Current Medications Generic Name Dose Route Start Last Admin Trade Name Freq PRN Reason Stop Dose Admin Acetaminophen 650 mg 05/19/20 09:31 05/21/20 08:39 Acetaminophen 325 Mg Tablet PO 650 mg Q4HR PRN Administration Pain 1 to 4 Carbamazepine 200 mg 05/20/20 21:00 05/20/20 21:08 Carbamazepine 200 Mg Tablet PO 200 mg QPM MILLICENT Administration Diltiazem HCl 240 mg 05/20/20 09:00 05/21/20 08:39 Diltiazem Cd 240 Mg Capsule PO 240 mg DAILY MILLICENT Administration Ketorolac Tromethamine 15 mg 05/20/20 19:00 05/21/20 13:12 Ketorolac 15 Mg/Ml Vial IVP 05/25/20 18:59 15 mg Q6HR MILLICENT Administration Losartan Potassium 50 mg 05/21/20 09:00 05/21/20 08:39 Losartan 50 Mg Tablet PO 50 mg DAILY MILLICENT Administration Methocarbamol 500 mg 05/20/20 18:20 05/21/20 11:12 Methocarbamol 500 Mg Tablet PO 500 mg Q6HR PRN Administration Spasms Metoprolol Succinate 200 mg 05/20/20 09:00 05/21/20 08:39 Metoprolol Succinate 50 Mg Tablet PO 200 mg DAILY MILLICENT Administration Ondansetron HCl 4 mg 05/19/20 09:31 05/21/20 00:07 Ondansetron Odt 4 Mg Tablet TL 4 mg Q6HR PRN Administration Nausea / Vomiting Ondansetron HCl 4 mg 05/19/20 09:31 05/19/20 15:10 Ondansetron 4 Mg/2 Ml Vial IVP 4 mg Q6HR PRN Administration Nausea / Vomiting Pantoprazole Sodium 40 mg 05/20/20 08:00 05/21/20 06:36 Pantoprazole 40 Mg Vial IVP 40 mg QDAC MILLICENT Administration Polyethylene Glycol 17 gm 05/21/20 09:00 05/21/20 08:39 Polyethylene Glycol 3350 17 Gm Packet PO Not Given DAILY MILLICENT Rivaroxaban 20 mg 05/20/20 17:00 05/20/20 17:28 Rivaroxaban 10 Mg Tablet PO 20 mg QDDINNER MILLICENT Administration Sertraline HCl 200 mg 05/21/20 09:00 05/21/20 08:38 Sertraline 50 Mg Tablet PO 200 mg DAILY MILLICENT Administration Sodium Chloride 10 ml 05/19/20 09:31 05/21/20 06:36 Sodium Chloride Flush 0.9% 10 Ml Syringe IVP 10 ml PRN PRN Administration NEEDED PER PROVIDER ORDERS Sodium Chloride 10 ml 05/19/20 17:00 05/21/20 06:36 Sodium Chloride Flush 0.9% 10 Ml Syringe IVP 10 ml 0100,0900,1700 MILLICENT Administration - Lab Result Fish Bone Diagrams: 05/21/20 05:09 05/21/20 05:09 - Additional Planning My Orders: My Active Orders 05/20/20 17:00 Rivaroxaban [Xarelto] 20 mg PO QDDINNER 05/20/20 17:30 Abdomen Complete [US] Stat 05/20/20 21:00 carBAMazepine [TEGretol] 200 mg PO QPM 05/21/20 C DIFF PCR Stat 05/21/20 09:00 Losartan [Cozaar] 50 mg PO DAILY Sertraline [Zoloft] 200 mg PO DAILY polyethylene glycoL 3350 [Miralax] 17 gm PO DAILY 05/21/20 16:00 NS 0.9% @ 83.333 mls/hr Sodium Chloride 0.9% [Normal Saline 0.9%] 1,000 ml IV 83.333 mls/hr 05/21/20 Dinner Soft (Low Fiber) Diet [DIET] 05/21/20 21:00 Atorvastatin [Lipitor] 40 mg PO QPM Subjective - Subjective Patient Reports: Feeling Better Objective Vital Signs: Vital Signs - 24 hr 05/20/20 05/20/20 05/20/20 16:26 21:00 23:46 Temperature 36.5 C 36.9 C 37.1 C Heart Rate [ 83 96 99 Brachial] Heart Rate [ Radial] Respiratory 16 16 17 Rate Blood Pressure 155/92 H 148/77 H 162/70 H [Right Brachial artery] O2 Saturation 92 96 95 05/21/20 05/21/20 05/21/20 05:00 07:36 12:09 Temperature 36.6 C 36.8 C 37.1 C Heart Rate [ 90 Brachial] Heart Rate [ 102 H 100 Radial] Respiratory 18 16 14 Rate Blood Pressure 144/93 H 151/98 H 146/61 H [Right Brachial artery] O2 Saturation 95 96 95 Oxygen O2 Source Room air I&O (Last 24 Hrs): Intake and Output Totals x24h 05/19/20 05/20/20 05/21/20 23:59 23:59 23:59 Intake Total 4636.667 7434.824 8459.908 Output Total 500 3350 650 Balance 4136.667 -4090.372 0654.908 General: Alert, Oriented x3, Cooperative, No acute distress HEENT: Atraumatic Neck: Supple Lymphatic: no adenopathy Neuro: Alert, Non Focal, Oriented Times 3 Cardiovascular: Regular rate, Normal S1, Normal S2 Respiratory: Chest non-tender, No respiratory distress, Breath sounds nml Abdomen: Normal bowel sounds, Soft Extremities: Normal pulses - Results Results: Laboratory Results WBC 6.0 x10^3/uL (4.8-10.8) 05/21/20 05:09 RBC 3.81 10^6/uL (4.20-5.40) L 05/21/20 05:09 Hgb 12.8 g/dL (12.0-16.0) 05/21/20 05:09 Hct 37.8 % (37.0-47.0) 05/21/20 05:09 MCV 99.2 fL (81.0-99.0) H 05/21/20 05:09 MCH 33.6 pg (27.0-31.0) H 05/21/20 05:09 MCHC 33.9 g/dL (32.0-36.0) 05/21/20 05:09 RDW 12.9 % (12.0-15.0) 05/21/20 05:09 Plt Count 137 10^3/uL (130-450) 05/21/20 05:09 MPV 11.3 fL (7.9-10.8) H 05/21/20 05:09 Neut # (Auto) 4.4 10^3/uL (1.5-6.6) 05/21/20 05:09 Lymph # (Auto) 0.8 10^3/uL (1.5-3.5) L 05/21/20 05:09 [place] # (Auto) 0.5 10^3/uL (0.0-1.0) 05/21/20 05:09 Eos # (Auto) 0.2 10^3/uL (0.0-0.7) 05/21/20 05:09 Baso # (Auto) 0.0 10^3/uL (0.0-0.1) 05/21/20 05:09 Absolute Nucleated RBC 0.00 x10^3/uL 05/21/20 05:09 Nucleated RBC % 0.0 /100WBC 05/21/20 05:09 PT 13.5 secs (9.9-12.6) H 05/19/20 05:19 INR 1.2 (0.8-1.2) 05/19/20 05:19 APTT 25.1 secs (24.9-33.3) 05/19/20 05:19 Sodium 136 mmol/L (135-145) 05/21/20 05:09 Potassium 3.4 mmol/L (3.5-5.0) L 05/21/20 05:09 Chloride 100 mmol/L (101-111) L 05/21/20 05:09 Carbon Dioxide 25 mmol/L (21-32) 05/21/20 05:09 Anion Gap 11.0 (6-13) 05/21/20 05:09 BUN 10 mg/dL (6-20) 05/21/20 05:09 Creatinine 0.6 mg/dL (0.4-1.0) 05/21/20 05:09 Estimated GFR (MDRD) 98 (>89) 05/21/20 05:09 Glucose 96 mg/dL (70-100) 05/21/20 05:09 Lactic Acid 2.0 mmol/L (0.5-2.2) 05/19/20 07:37 Calcium 8.9 mg/dL (8.5-10.3) 05/21/20 05:09 Magnesium 1.8 mg/dL (1.7-2.8) 05/21/20 05:09 Total Bilirubin 1.0 mg/dL (0.2-1.0) 05/19/20 05:19 AST 21 IU/L (10-42) 05/19/20 05:19 ALT 20 IU/L (10-60) 05/19/20 05:19 Alkaline Phosphatase 81 IU/L (42-121) 05/19/20 05:19 Troponin I High Sens 8.0 ng/L (2.3-14.8) 05/19/20 07:21 Total Protein 6.8 g/dL (6.7-8.2) 05/19/20 05:19 Albumin 4.0 g/dL (3.2-5.5) 05/19/20 05:19 Globulin 2.8 g/dL (2.1-4.2) 05/19/20 05:19 Albumin/Globulin Ratio 1.4 (1.0-2.2) 05/19/20 05:19 Lipase 23 U/L (22-51) 05/19/20 05:19 Urine Color YELLOW 05/19/20 09:12 Urine Clarity HAZY (CLEAR) 05/19/20 09:12 Urine pH 5.5 PH (5.0-7.5) 05/19/20 09:12 Ur Specific [place] 1.010 (1.002-1.030) 05/19/20 09:12 Urine Protein NEGATIVE mg/dL (NEGATIVE) 05/19/20 09:12 Urine Glucose (UA) NEGATIVE mg/dL (NEGATIVE) 05/19/20 09:12 Urine Ketones NEGATIVE mg/dL (NEGATIVE) 05/19/20 09:12 Urine Occult Blood NEGATIVE (NEGATIVE) 05/19/20 09:12 Urine Nitrite POSITIVE (NEGATIVE) H 05/19/20 09:12 Urine Bilirubin NEGATIVE (NEGATIVE) 05/19/20 09:12 Urine Urobilinogen 0.2 (NORMAL) E.U./dL (NORMAL) 05/19/20 09:12 Ur Leukocyte Esterase SMALL (NEGATIVE) H 05/19/20 09:12 Urine RBC 0-5 /HPF (0-5) 05/19/20 09:12 Urine WBC 11-25 /HPF (0-5) H 05/19/20 09:12 Ur Squamous Epith Cells FEW Squamous (<= Few) 05/19/20 09:12 Urine Bacteria Few /HPF (None Seen) 05/19/20 09:12 Ur Microscopic Review INDICATED 05/19/20 09:12 Urine Culture Comments INDICATED 05/19/20 09:12 Nasal Adenovirus (PCR) NOT DETECTED 05/19/20 05:19 Nasal B. parapertussis DNA (PCR) NOT DETECTED 05/19/20 05:19 Nasal Coronavir 229E PCR NOT DETECTED 05/19/20 05:19 Nasal Coronavir HKU1 PCR NOT DETECTED 05/19/20 05:19 Nasal Coronavir NL63 PCR NOT DETECTED 05/19/20 05:19 Nasal Coronavir OC43 PCR NOT DETECTED 05/19/20 05:19 Nasal Enterovir/Rhinovir PCR NOT DETECTED 05/19/20 05:19 Nasal Influenza B PCR NOT DETECTED 05/19/20 05:19 Nasal Influenza A PCR NOT DETECTED 05/19/20 05:19 Nasal Parainfluen 1 PCR NOT DETECTED 05/19/20 05:19 Nasal Parainfluen 2 PCR NOT DETECTED 05/19/20 05:19 Nasal Parainfluen 3 PCR NOT DETECTED 05/19/20 05:19 Nasal Parainfluen 4 PCR NOT DETECTED 05/19/20 05:19 Nasal RSV (PCR) NOT DETECTED 05/19/20 05:19 Nasal B.pertussis DNA PCR NOT DETECTED 05/19/20 05:19 Nasal C.pneumoniae (PCR) NOT DETECTED 05/19/20 05:19 [place] Human Metapneumo PCR NOT DETECTED 05/19/20 05:19 Nasal M.pneumoniae (PCR) NOT DETECTED 05/19/20 05:19 Nasal SARS-CoV-2 (PCR) NOT DETECTED 05/19/20 05:19 Last Dose Date UNKNOWN 05/20/20 07:22 Last Dose Time UNKNOWN 05/20/20 07:22 Carbamazepine < 2.0 ug/mL 05/20/20 07:22 - Procedures Procedures: Procedures OTHER LOCAL DESTRUC SKIN (10/26/12) ABX Reporting Has patient been on IV antibiotics over the past 48 hours?: No Current Medications - Current Medications Current Medications: Active Medications Acetaminophen (Acetaminophen 325 Mg Tablet) 650 mg PO Q4HR PRN PRN Reason: Pain 1 to 4 Last Admin: 05/21/20 08:39 Dose: 650 mg Documented by: Atorvastatin Calcium (Atorvastatin 40 Mg Tablet) 40 mg PO QPM MILLICENT Carbamazepine (Carbamazepine 200 Mg Tablet) 200 mg PO QPM [facility] Last Admin: 05/20/20 21:08 Dose: 200 mg Documented by: Diltiazem HCl (Diltiazem Cd 240 Mg Capsule) 240 mg PO DAILY [facility] Last Admin: 05/21/20 08:39 Dose: 240 mg Documented by: Sodium Chloride (Normal Saline 0.9%) 1,000 mls @ 83.333 mls/hr IV .Q12H [facility] Stop: 05/22/20 15:59 Ketorolac Tromethamine (Ketorolac 15 Mg/Ml Vial) 15 mg IVP Q6HR [facility] Stop: 05/25/20 18:59 Last Admin: 05/21/20 13:12 Dose: 15 mg Documented by: Losartan Potassium (Losartan 50 Mg Tablet) 50 mg PO DAILY [facility] Last Admin: 05/21/20 08:39 Dose: 50 mg Documented by: Methocarbamol (Methocarbamol 500 Mg Tablet) 500 mg PO Q6HR PRN PRN Reason: Spasms Last Admin: 05/21/20 11:12 Dose: 500 mg Documented by: Metoprolol Succinate (Metoprolol Succinate 50 Mg Tablet) 200 mg PO DAILY [facility] Last Admin: 05/21/20 08:39 Dose: 200 mg Documented by: Nitroglycerin (Nitroglycerin Sl 0.4 Mg Tablet) 0.4 mg SL Q5MIN PRN PRN Reason: Chest Pain Ondansetron HCl (Ondansetron Odt 4 Mg Tablet) 4 mg TL Q6HR PRN PRN Reason: Nausea / Vomiting Last Admin: 05/21/20 00:07 Dose: 4 mg Documented by: Ondansetron HCl (Ondansetron 4 Mg/2 Ml Vial) 4 mg IVP Q6HR PRN PRN Reason: Nausea / Vomiting Last Admin: 05/19/20 15:10 Dose: 4 mg Documented by: Pantoprazole Sodium (Pantoprazole 40 Mg Vial) 40 mg IVP QDAC [facility] Last Admin: 05/21/20 06:36 Dose: 40 mg Documented by: Polyethylene Glycol (Polyethylene Glycol 3350 17 Gm Packet) 17 gm PO DAILY [facility] Last Admin: 05/21/20 08:39 Dose: Not Given Documented by: Rivaroxaban (Rivaroxaban 10 Mg Tablet) 20 mg PO QDDINNER [facility] Last Admin: 05/20/20 17:28 Dose: 20 mg Documented by: Sertraline HCl (Sertraline 50 Mg Tablet) 200 mg PO DAILY [facility] Last Admin: 05/21/20 08:38 Dose: 200 mg Documented by: Simethicone (Simethicone Chew 80 Mg Tablet) 80 mg PO Q6HR [facility]ILLICENT Simethicone (Simethicone Chew 80 Mg Tablet) 80 mg PO ONCE [facility] Sodium Chloride (Sodium Chloride Flush 0.9% 10 Ml Syringe) 10 ml IVP PRN PRN PRN Reason: NEEDED PER PROVIDER ORDERS Last Admin: 05/21/20 06:36 Dose: 10 ml Documented by: Sodium Chloride (Sodium Chloride Flush 0.9% 10 Ml Syringe) 10 ml IVP 0100,0900,1700 [facility] Last Admin: 05/21/20 06:36 Dose: 10 ml Documented by: Atorvastatin Calcium 40 mg PO QPM 10/26/12 carBAMazepine [TEGretol] 200 mg PO QPM 10/26/12 Aspirin EC [Ecotrin] 81 mg PO DAILY 07/20/13 Ca Cmb No.1/Vit D3/B-6/FA/B12 [Vitamin D3 1,000 Unit Tablet] 1 each PO DAILY 07/20/13 Nitroglycerin [Nitrostat] 0.4 mg SL Q5MIN PRN 04/18/15 Sertraline [Zoloft] 200 mg ORAL DAILY 04/18/15 Metoprolol Succinate [[place] Sprinkle] 200 mg PO DAILY 05/19/20 Oxybutynin Chloride [Ditropan Xl] 20 mg PO DAILY 05/19/20 Rivaroxaban [Xarelto] 20 mg PO DAILY 05/19/20 dilTIAZem HCL [Diltiazem 24Hr ER (Xr)] 240 mg PO DAILY 05/19/20 Losartan/Hydrochlorothiazide [Hyzaar 50-12.5 Tablet] 1 each PO DAILY 05/21/20
--- NOTE | 2020-05-21 16:06 | Ultrasound Report ---
PROCEDURE: Abdomen Complete INDICATIONS: right upper abd pain and diffused to left epigast TECHNIQUE: Real-time scanning was performed of the abdominal and retroperitoneal organs, with image documentatio n. COMPARISON: CT abdomen and pelvis 05/19/2020 FINDINGS: Liver: Liver is normal in size and homogeneous in echotexture. Gallbladder: Gallbladder has been removed. Biliary ducts: Intrahepatic bile ducts are non-dilated. Extrahepatic bile duct caliber measures 4.4 mm. Normal is 6-7 mm or less in diameter, or 10 mm or less post-cholecystectomy. Pancreas: Visualized portions of the pancreas are sonographically normal. Spleen: Spleen is normal in size and homogeneous in echotexture. Kidneys: Kidneys are normal in size. There is an echogenic focus within the left kidney measuring 13 x 14 x 15 mm, previously identified on CT of 05/19/2020.. Right kidney measures 10.6 cm long; left kidney measures 10.9 cm long. No hydronephrosis or nephrolithiasis. No solid masses. Aorta: Visualized aorta is normal in caliber at less than 3 cm. However, it is considered suboptima l exam secondary to calcification and overlying bowel gas. Iliacs: Proximal common iliac arteries are normal in caliber at less than 2.5 cm. IVC: Intrahepatic inferior vena cava is patent. Miscellaneous: No free abdominal fluid. IMPRESSION: 1. Gallbladder has been removed. 2. No acute abdominal process identified. 3. Echogenic focus within the kidney identified on CT exam suggestive of angiomyolipoma. The above findings are concordant with preliminary report. Reviewed by: Lauren Jacome MD on 05/21/2020 4:04 PM PST Approved by: Lauren Jacome MD on 05/21/2020 4:04 PM PST Station ID: [id number]
[2020-05-21] MEDS ORDERED: ACETAMINOPHEN 1,000 MG/100 ML 100 ML IV PRN (17:00)
--- NOTE | 2020-05-21 17:06 | PROVIDER PROGRESS NOTE ---
Subjective - General Admit Date: 05/19/20 Procedure Performed: HD#3 - Review of Systems All Other Systems: positive: Reviewed and negative - Other Other Information/Narrative: Mrs. Rodriguez reports feeling "much better" today. She reports her nausea has resolved and her abdomen is still a bit tender but she is hungry and is tolerating po. Eating spaghetti currently with no difficulty. Objective - Patient Data Vital Signs: Vital Signs x48h Temp Pulse Pulse Resp BP BP Pulse Ox 05/21/20 16:30 36.8 C 98 16 154/98 H 150/95 H 95 05/21/20 12:09 37.1 C 100 14 146/61 H 95 Weight: Weight 05/19/20 05/20/20 05/21/20 23:59 23:59 23:59 Weight (kg) 72 kg Intake & Output: Intake and Output Totals x24h 05/19/20 05/20/20 05/21/20 23:59 23:59 23:59 Intake Total 4636.667 3202.697 4362.908 Output Total 500 3350 750 Balance 4136.667 -8206.443 8382.908 - Lab Results Lab Results: 05/21/20 05:09 05/21/20 05:09 Other Lab Results: Lab Results x24hrs 05/21/20 05/21/20 Range/Units 05:09 05:09 WBC 6.0 (4.8-10.8) x10^3/uL RBC 3.81 L (4.20-5.40) 10^6/uL Hgb 12.8 (12.0-16.0) g/dL Hct 37.8 (37.0-47.0) % MCV 99.2 H (81.0-99.0) fL MCH 33.6 H (27.0-31.0) pg MCHC 33.9 (32.0-36.0) g/dL RDW 12.9 (12.0-15.0) % Plt Count 137 (130-450) 10^3/uL MPV 11.3 H (7.9-10.8) fL Neut # (Auto) 4.4 (1.5-6.6) 10^3/uL Lymph # (Auto) 0.8 L (1.5-3.5) 10^3/uL [place] # (Auto) 0.5 (0.0-1.0) 10^3/uL Eos # (Auto) 0.2 (0.0-0.7) 10^3/uL Baso # (Auto) 0.0 (0.0-0.1) 10^3/uL Absolute Nucleated RBC 0.00 x10^3/uL Nucleated RBC % 0.0 /100WBC Sodium 136 (135-145) mmol/L Potassium 3.4 L (3.5-5.0) mmol/L Chloride 100 L (101-111) mmol/L Carbon Dioxide 25 (21-32) mmol/L Anion Gap 11.0 (6-13) BUN 10 (6-20) mg/dL Creatinine 0.6 (0.4-1.0) mg/dL Estimated GFR (MDRD) 98 (>89) Glucose 96 (70-100) mg/dL Calcium 8.9 (8.5-10.3) mg/dL Magnesium 1.8 (1.7-2.8) mg/dL - Current Medications Current Medications: Current Medications Generic Name Dose Route Start Last Admin Trade Name Freq PRN Reason Stop Dose Admin Acetaminophen 650 mg 05/19/20 09:31 05/21/20 08:39 Acetaminophen 325 Mg Tablet PO 650 mg Q4HR PRN Administration Pain 1 to 4 Carbamazepine 200 mg 05/20/20 21:00 05/20/20 21:08 Carbamazepine 200 Mg Tablet PO 200 mg QPM MILLICENT Administration Diltiazem HCl 240 mg 05/20/20 09:00 05/21/20 08:39 Diltiazem Cd 240 Mg Capsule PO 240 mg DAILY [facility]ICENT Administration Ketorolac Tromethamine 15 mg 05/20/20 19:00 05/21/20 13:12 Ketorolac 15 Mg/Ml Vial IVP 05/25/20 18:59 15 mg Q6HR MILLICENT Administration Losartan Potassium 50 mg 05/21/20 09:00 05/21/20 08:39 Losartan 50 Mg Tablet PO 50 mg DAILY M[facility]ICENT Administration Methocarbamol 500 mg 05/20/20 18:20 05/21/20 11:12 Methocarbamol 500 Mg Tablet PO 500 mg Q6HR PRN Administration Spasms Metoprolol Succinate 200 mg 05/20/20 09:00 05/21/20 08:39 Metoprolol Succinate 50 Mg Tablet PO 200 mg DAILY [facility]ICENT Administration Ondansetron HCl 4 mg 05/19/20 09:31 05/21/20 00:07 Ondansetron Odt 4 Mg Tablet TL 4 mg Q6HR PRN Administration Nausea / Vomiting Ondansetron HCl 4 mg 05/19/20 09:31 05/19/20 15:10 Ondansetron 4 Mg/2 Ml Vial IVP 4 mg Q6HR PRN Administration Nausea / Vomiting Pantoprazole Sodium 40 mg 05/20/20 08:00 05/21/20 06:36 Pantoprazole 40 Mg Vial IVP 40 mg QDAC MILLICENT Administration Polyethylene Glycol 17 gm 05/21/20 09:00 05/21/20 08:39 Polyethylene Glycol 3350 17 Gm Packet PO Not Given DAILY [facility]ICENT Rivaroxaban 20 mg 05/20/20 17:00 05/20/20 17:28 Rivaroxaban 10 Mg Tablet PO 20 mg QDDINNER MILLICENT Administration Sertraline HCl 200 mg 05/21/20 09:00 05/21/20 08:38 Sertraline 50 Mg Tablet PO 200 mg DAILY [facility] Administration Sodium Chloride 10 ml 05/19/20 09:31 05/21/20 06:36 Sodium Chloride Flush 0.9% 10 Ml Syringe IVP 10 ml PRN PRN Administration NEEDED PER PROVIDER ORDERS Sodium Chloride 10 ml 05/19/20 17:00 05/21/20 06:36 Sodium Chloride Flush 0.9% 10 Ml Syringe IVP 10 ml 0100,0900,1700 MILLICENT Administration - Physical Exam Abdomen: positive: Nml bowel sounds, Tenderness. negative: Guarding, Rebound Impression/Plan - Problem List Problem List: Likely viral enteritis that is improving. Please call if I can be of assistance.
[2020-05-21] MEDS: RIVAROXABAN 10 MG TABLET PO SCH (17:17)
[2020-05-21] MEDS: SODIUM CHLORIDE 0.9% 1,000 ML IV SCH (17:17)
[2020-05-21] MEDS: SIMETHICONE CHEW 80 MG TABLET PO SCH (19:06)
[2020-05-21] MEDS: carBAMazepine 200 MG TABLET PO SCH (20:40)
[2020-05-21] MEDS ORDERED: ATORVASTATIN 40 MG TABLET PO SCH (21:00)
[2020-05-22] MEDS ORDERED: KETOROLAC 15 MG/ML VIAL IVP PRN
[2020-05-22] MEDS: SIMETHICONE CHEW 80 MG TABLET PO SCH ×2 (01:00→06:37)
[2020-05-22] MEDS: SODIUM CHLORIDE 0.9% 1,000 ML IV SCH (05:02)
[2020-05-22 05:48] LABS: BASOPHILS % (AUTO) 0.4 %; EOSINOPHILS # (AUTO) 0.2 10^3/uL (0.0-0.7); EOSINOPHILS % (AUTO) 4.5 %; HGB - HEMOGLOBIN 12.4 g/dL (12.0-16.0); LYMPHOCYTES # (AUTO) 0.7 10^3/uL (1.5-3.5); LYMPHOCYTES % (AUTO) 13.3 %; MEAN CORPUSCULAR HEMOGLOBIN 34.8 pg (27.0-31.0); MEAN CORPUSCULAR HGB CONC 35.2 g/dL (32.0-36.0); MEAN CORPUSCULAR VOLUME 98.9 fL (81.0-99.0); MEAN PLATELET VOLUME 11.1 fL (7.9-10.8); MONOCYTES # (AUTO) 0.5 10^3/uL (0.0-1.0); MONOCYTES % (AUTO) 10.8 %; NEUTROPHILS # (AUTO) 3.5 10^3/uL (1.5-6.6); NEUTROPHILS % (AUTO) 70.8 %; PLT - PLATELET COUNT 131 10^3/uL (130-450); RED BLOOD COUNT 3.56 10^6/uL (4.20-5.40); RED CELL DISTRIBUTION WIDTH 12.9 % (12.0-15.0); WHITE BLOOD COUNT 4.9 x10^3/uL (4.8-10.8)
[2020-05-22 05:56] LABS: CALCIUM 8.4 mg/dL (8.5-10.3); CREATININE 0.6 mg/dL (0.4-1.0); MAGNESIUM 1.7 mg/dL (1.7-2.8)
[2020-05-22] MEDS: PANTOPRAZOLE 40 MG VIAL IVP SCH (06:37)
[2020-05-22] MEDS: SODIUM CHLORIDE FLUSH 0.9% 10 ML SYRINGE IVP PRN (06:37)
[2020-05-22] MEDS: METOPROLOL SUCCINATE 50 MG TABLET PO SCH (08:05)
[2020-05-22] MEDS: SERTRALINE 50 MG TABLET PO SCH (08:06)
[2020-05-22] MEDS: LOSARTAN 50 MG TABLET PO SCH (08:06)
[2020-05-22] MEDS: diltiaZEM CD 240 MG CAPSULE PO SCH (08:07)
[2020-05-22 08:10] VITALS: BP 152/98
[2020-05-22] MEDS: polyethylene glycoL 3350 17 GM PACKET PO SCH (08:12)
[2020-05-22] MEDS: SODIUM CHLORIDE FLUSH 0.9% 10 ML SYRINGE IVP SCH (08:12)
--- NOTE | 2020-05-22 08:55 | Discharge Plan ---
Discharge Plan Problem Reviewed?: Yes Disposition: Home, Self Care Condition: Stable Prescriptions: Simethicone [Mylicon] 80 mg PO Q6HR PRN #15 tablet PRN Reason: Gas Diet: Soft Activity Restrictions: Activity as Tolerated Shower Restrictions: No (fall precaution) Instruction Topics: Simethicone chewable tablets, Gastritis, ED Epigastric Pain [facility], Gastritis Tx Health Concerns: gastritis Plan of Treatment: your symptoms are much improved and you ate 100% your diet. you had CT and CTA of abdomen/pelvis which show unremarkable. you likely have gastritis and have excess gas in your stomach and intestine which cause painful pressure. you are prescribed Simethicone as you need to help relieve the problem, you may resume your home meds as well. Care Goals: stabilization and improvement of your medical conditions. Assessment: discuss the care plan with you and your daughter, you understood and agreed. Additional Instructions or Follow Up instructions: you may followup with your PCP in one to two weeks. should your symptoms return or worsen, you may present ER or call 911 for help No Smoking: If you smoke, Please STOP! Call for help.
--- NOTE | 2020-05-22 09:07 | DISCHARGE SUMMARY ---
"Discharge Summary Admit Date: 05/19/20 Discharge Date: 05/22/20 Discharging Provider: Devan Ramos Primary Care Provider: Josh Maldonado Condition at Discharge: Stable Discharge Disposition: 01 Home, Self Care Discharge Facility Name: home - DIAGNOSES Discharge Diagnoses with Status of Each Condition: (1) Diarrhea resolved. (2) Nausea and vomiting resolved. it is likely caused by virus gastritis. pt Tolerated regular diet without nausea or vomiting (3)Abdominal pain resolved. Patient is prescribed simethicone as needed. Patient had a CT and CTA of abdomen/pelvis which was unremarkable (4) atrial fibrillation with RVR pt's rapid pause is controlled. Resume home medication (5) Hyperlipidemia stable (6) Hypokalemia resolved (7) Dehydration resolved (8) Multiple sclerosis stable (9) Basilar artery stenosis stable - HPI History of Present Illness: refer from Ms. Araiza's HPI on 05/19/2020 Patient is a pleasant 72-year-old female with a history of hypertension, hyperlipidemia, and atrial fibrillation who presents to the emergency room with 3 days of nausea and vomiting. She report her symptoms started last Tuesday morning. She felt unwell and fatigued Tuesday morning, but was able to go grocery shopping. However, she started feeling worse and developed abdominal pain, nausea, and vomiting towards the evening. Her symptoms worsened through the weekend with multiple episodes of non-bloody emesis and diarrhea and severe abdominal pain. Her abdominal pain is said to be 10/10 at its worst and about a 4/10 at its best. She said it started from under her left rib cage and is now felt in her whole entire abdomen. Because of her nausea, she has not been eating or drinking since Tuesday. She also reports having chills and feeling feverish intermittently. She became too weak and was in too much pain last night that her called EMS to take her to the emergency room to be evaluated. She does not recall consuming anything unusual and has not been around anyone who is sick. She lives with her and he is not symptomatic. On arrival to the emergency room, she is in atrial fibrillation RVR, afebrile, mildly hypertensive, and saturating well on room air. Her ECG showed no ST or T wave changes, chest-xray was unremarkable, and abdomen/pelvis CTA showed no signs of obstruction, ischemia, or inflammatory changes. It is noted that she has a 2mm subpleural left lower pulmonary nodule that is non-contributary to her current symptoms. Her potassium is 2.7. This was replaced with 10 mEq in the emergency room. No leukytosis and inital mildly elevated lactate is now correct with IV fluid. Patient denies cough, chest pain, shortness of breath. She has occasional heartburn. She has not vomited since she's been here after receiving IV ondansetron. Her abdominal pain has improved with IV dilaudid as well. She denies dysuria, urinary frequency, or urgency or flank pain. On exam, patient's belly is tender to palpation especially around her rib area. She reports her pain is worse on the left abdomen and rib than the right. There is guarding and grimacing with deeper palpation. She is being admitted for observations for dehydration secondary to persistent nausea and vomiting. - CONSULTS | PROCEDURES Consultations: DR. Arroyo Procedures: no procedure - HOSPITAL COURSE Hospital Course: Patient was admitted for persistent nausea, vomiting, diarrhea and abdominal pain. CT and CTA of abdomen and pelvis did not show bowel ischemia or inflamma tion disease. Your culture show positive for E. coli but patient has no symptoms or dysuria, patient has normal range of WBC, patient has no fever.Patient reported she had continuous abdominal pain. GI surgeon Dr. Arroyo was consulted. No procedure for pt. After the patient had medical management with intravenous IV fluids and initiate with bowel rest, Pain control, Patient's symptoms was resolved. Patient has no more nausea or vomiting, patient tolerated regular diet, Patient had no diarrhea. - ALLERGIES Allergies/Adverse Reactions: Allergies Allergy/AdvReac Type Severity Reaction Status Date / Time iodine Allergy Unknown Rash Verified 10/16/13 11:42 codeine [Codeine] AdvReac Unknown Nausea Verified 04/19/15 10:50 hydrocodone bitartrate * AdvReac Unknown Nausea Verified 04/19/15 10:51 [From Vicodin] - MEDICATIONS Home Medications: Ambulatory Orders Medication Instructions Recorded Confirmed Atorvastatin Calcium 40 mg PO QPM 10/26/12 05/19/20 carBAMazepine [TEGretol] 200 mg PO QPM 10/26/12 05/19/20 Aspirin EC [Ecotrin] 81 mg PO DAILY 07/20/13 05/19/20 Ca Cmb No.1/Vit D3/B-6/FA/B12 1 each PO DAILY 07/20/13 05/19/20 [Vitamin D3 1,000 Unit Tablet] Nitroglycerin [Nitrostat] 0.4 mg SL Q5MIN PRN 04/18/15 05/19/20 Sertraline [Zoloft] 200 mg ORAL DAILY 04/18/15 05/19/20 Metoprolol Succinate [Kapspargo 200 mg PO DAILY 05/19/20 05/19/20 Sprinkle] Oxybutynin Chloride [Ditropan Xl] 20 mg PO DAILY 05/19/20 05/19/20 Rivaroxaban [Xarelto] 20 mg PO DAILY 05/19/20 05/19/20 dilTIAZem HCL [Diltiazem 24Hr ER 240 mg PO DAILY 05/19/20 05/19/20 (Xr)] Losartan/Hydrochlorothiazide 1 each PO DAILY 05/21/20 05/21/20 [Hyzaar 50-12.5 Tablet] Simethicone [Mylicon] 80 mg PO Q6HR PRN #15 tablet 05/22/20 - PHYSICAL EXAM AT DISCHARGE General Appearance: positive: No acute distress, Alert. negative: Lethargic Eyes Bilateral: positive: Normal inspection, PERRL, No lid inflammation ENT: positive: ENT inspection nml, No signs of dehydration. negative: Purulent nasal drainage Neck: positive: Nml inspection, Thyroid nml, Trachea midline. negative: Thyromegaly, Tracheal deviation Respiratory: positive: Chest non-tender, No respiratory distress, Breath sounds nml. negative: Wheezes, Rales, Rhonchi Cardiovascular: positive: Regular rate & rhythm, No murmur. negative: Tachycardia, Bradycardia, Systolic murmur, Diastolic murmur Peripheral Pulses: positive: 2+ Abdomen: positive: Non-tender, Nml bowel sounds, No distention. negative: Tenderness, Guarding, Rebound Skin: positive: Color nml, No rash, Warm, Dry. negative: Cyanosis, Diaphoresis, Pallor Extremities: positive: Non-tender, Full ROM, Nml appearance. negative: Calf tenderness Neurologic/Psychiatric: positive: Oriented x3, Motor nml, Sensation nml, Mood/affect nml. negative: Weakness, Sensory loss, Facial droop, Slurred/abnml speech, Depressed mood/affect - LABS Result Diagrams: 05/22/20 05:40 12/17/20 05:40 - FOLLOW UP Follow Up: your symptoms are much improved and you ate 100% your diet. you had CT and CTA of abdomen/pelvis which show unremarkable. you likely have gastritis and have excess gas in your stomach and intestine which cause painful pressure. you are prescribed Simethicone as you need to help relieve the problem, you may resume your home meds as well. you may followup with your PCP in one to two weeks. should your symptoms return or worsen, you may present ER or call 911 for help - TIME SPENT Time Spent in Discharge (Minutes): 30"
== END 2020-05-22 10:45 | disposition home or self-care (01) ==
LOC: EDUNIT# → ED 04:54 → MS2 09:31
PROVIDERS: ADMIT Specialist; ATTEND Nurse Practitioner Gerontology
DX: E86.0 Dehydration (principal); R19.7 Diarrhea, unspecified; R11.2 Nausea with vomiting, unspecified; R10.9 Unspecified abdominal pain; I48.11 Longstanding persistent atrial fibrillation; I10 Essential (primary) hypertension; E78.5 Hyperlipidemia, unspecified; E87.6 Hypokalemia; F41.9 Anxiety disorder, unspecified; G35 Multiple sclerosis; G47.30 Sleep apnea, unspecified; I65.1 Occlusion and stenosis of basilar artery; R91.1 Solitary pulmonary nodule; R32 Unspecified urinary incontinence; R35.0 Frequency of micturition; Z79.82 Long term (current) use of aspirin; Z79.899 Other long term (current) drug therapy; Z87.891 Personal history of nicotine dependence; Z90.49 Acquired absence of other specified parts of digestive tract
CPT/HCPCS: 36415; 71045; 74022; 74174; 74176; 76700; 80048; 80053; 80156; 81001; 83605; 83690; 83735; 84484; 85025; 85610; 85730; 87077; 87086; 87181; 87631; 87798; 93005; 96365; 96366; 96372; 96375; 96376; 99284; 99285; A9270; G0378; J0131; J1170; J1200; J1650; J7120; Q0162; Q9967; 0202U; 81003

== ENCOUNTER 2020-08-12 07:46 | Outpatient (CLI) | payer MEDICARE ==
[2020-08-12 15:12] LABS: BASOPHILS % (AUTO) 0.8 %; EOSINOPHILS # (AUTO) 0.1 10^3/uL (0.0-0.7); EOSINOPHILS % (AUTO) 3.4 %; HCT - HEMATOCRIT 41.9 % (37.0-47.0); HGB - HEMOGLOBIN 13.9 g/dL (12.0-16.0); LYMPHOCYTES # (AUTO) 0.9 10^3/uL (1.5-3.5); LYMPHOCYTES % (AUTO) 24.7 %; MEAN CORPUSCULAR HEMOGLOBIN 33.6 pg (27.0-31.0); MEAN CORPUSCULAR HGB CONC 33.2 g/dL (32.0-36.0); MEAN CORPUSCULAR VOLUME 101.2 fL (81.0-99.0); MEAN PLATELET VOLUME 11.3 fL (7.9-10.8); MONOCYTES # (AUTO) 0.4 10^3/uL (0.0-1.0); MONOCYTES % (AUTO) 9.5 %; NEUTROPHILS # (AUTO) 2.3 10^3/uL (1.5-6.6); NEUTROPHILS % (AUTO) 61.6 %; PLT - PLATELET COUNT 160 10^3/uL (130-450); RED BLOOD COUNT 4.14 10^6/uL (4.20-5.40); RED CELL DISTRIBUTION WIDTH 13.2 % (12.0-15.0); WHITE BLOOD COUNT 3.8 x10^3/uL (4.8-10.8)
[2020-08-12 15:38] LABS: THYROID STIMULATING HORMONE 2.73 uIU/mL (0.34-5.60)
[2020-08-12 15:45] LABS: ALBUMIN 4.4 g/dL (3.2-5.5); ALBUMIN/GLOBULIN RATIO 1.6 (1.0-2.2); ALKALINE PHOSPHATASE 103 IU/L (42-121); ALT ALANINE AMINOTRANSFERASE 16 IU/L (10-60); AST ASPARTATE AMINOTRANSFERASE 18 IU/L (10-42); BUN - BLOOD UREA NITROGEN 20 mg/dL (6-20); CALCIUM 9.3 mg/dL (8.5-10.3); CARBON DIOXIDE - CO2 26 mmol/L (21-32); CHLORIDE 102 mmol/L (101-111); CHOL/HDL RATIO 3.5 (<4.4); CHOLESTEROL 188 mg/dL; CREATININE 0.8 mg/dL (0.4-1.0); GFR - MDRD 70 (>89); GLUCOSE 102 mg/dL (70-100); HDL CHOLESTEROL 53 mg/dL; LDL CHOLESTEROL,CALCULATED 107 mg/dL; POTASSIUM 3.6 mmol/L (3.5-5.0); SODIUM 138 mmol/L (135-145); TOTAL PROTEIN 7.1 g/dL (6.7-8.2); TRIGLYCERIDES 138 mg/dL; VLDL CHOLESTEROL 28 mg/dL
== END 2020-08-12 07:47 | disposition home or self-care (01) ==
LOC: LAB.S 07:46
PROVIDERS: ATTEND Internal Medicine
DX: I48.91 Unspecified atrial fibrillation (principal); E78.5 Hyperlipidemia, unspecified; I10 Essential (primary) hypertension; G35 Multiple sclerosis
CPT/HCPCS: 36415; 80053; 80061; 81001; 83721; 84443; 85025; 87086

== ENCOUNTER 2020-08-13 08:00 | Outpatient (CLI) | payer MEDICARE ==
[2020-08-13 20:04] LABS: BILIRUBIN,URINE NEGATIVE (NEGATIVE); GLUCOSE, URINE (UA) NEGATIVE (NEGATIVE); KETONES,URINE (UA) NEGATIVE (NEGATIVE); LEUKOCYTE ESTERASE, URINE TRACE (NEGATIVE); NITRITE,URINE POSITIVE (NEGATIVE); OCCULT BLOOD,URINE NEGATIVE (NEGATIVE); PH,URINE 5.5 PH (5.0-7.5); PROTEIN,URINE NEGATIVE (NEGATIVE); UROBILINOGEN,URINE 0.2 (NORMAL) E.U./dL (NORMAL)
[2020-08-13 20:07] LABS: CLARITY,URINE HAZY (CLEAR)
[2020-08-13 20:15] LABS: BACTERIA,URINE Many /HPF (None Seen); RBC,URINE 0-5 /HPF (0-5); SQUAMOUS EPITHELIAL CELL,UR RARE Squamous (<= Few)
== END 2020-08-13 23:59 | disposition home or self-care (01) ==
LOC: LAB.R 08:00
PROVIDERS: ATTEND Internal Medicine
DX: I48.91 Unspecified atrial fibrillation (principal); E78.5 Hyperlipidemia, unspecified; I10 Essential (primary) hypertension; G35 Multiple sclerosis
CPT/HCPCS: 81001; 87077; 87086; 87181

== ENCOUNTER 2020-09-02 10:17 | Outpatient (CLI) | payer MEDICARE ==
--- NOTE | 2020-09-02 15:23 | DEXA Report ---
PROCEDURE: Dexa Spine and/or Hip INDICATIONS: MENOPAUSE TECHNIQUE: Dual energy x-ray absorptiometry (DXA) was performed on a Panoramic Power System. Regions measur ed are the AP Spine, femoral neck, and if needed forearm. COMPARISON: 08/04/2015. FINDINGS: Lumbar Spine: Bone Mineral Density 1.162 g/cm/cm,T score -0.2, normal bone mineral density Left Femoral Neck: Bone Mineral Density 0.821 g/cm/cm, T score -1.5, osteopenia (T score greater or equal to -1.0: NORMAL) (T score from -1.1 to -2.4: OSTEOPENIA) (T score less than or equal to -2.5 to: OSTEOPOROSIS) Impression: OSTEOPENIA. Patient is at increased risk for fracture. Patients with diagnosis of osteoporosis or osteopenia should have regular bone mineral density assess ment. For those eligible for Medicare, routine testing is allowed once every 2 years. Testing frequ ency can be increased for patients who have rapidly progressing disease or for those who are receivin g medical therapy to restore bone mass. Reviewed by: Bravo Cortes MD on 09/02/2020 3:22 PM PDT Approved by: Bravo Cortes MD on 09/02/2020 3:22 PM PDT Station ID: [id number]
== END 2020-09-02 10:18 | disposition home or self-care (01) ==
LOC: DI 10:17
PROVIDERS: ATTEND Internal Medicine
DX: M85.88 Other specified disorders of bone density and structure, other site (principal)

== ENCOUNTER 2020-10-13 09:28 | Outpatient (CLI) | payer MEDICARE ==
--- NOTE | 2020-10-14 12:10 | Mammography Report ---
BILATERAL DIGITAL SCREENING MAMMOGRAM 3D/2D: 10/13/2020 CLINICAL: Routine screening. Comparison is made to exams dated: 10/04/2017 mammogram and 08/04/2015 mammogram - [facility]. There are scattered fibroglandular elements in both breasts. No significant masses, calcifications, or other findings are seen in either breast. There has been no significant interval change. IMPRESSION: NEGATIVE There is no mammographic evidence of malignancy. A 1 year screening mammogram is recommended. This exam was interpreted at Station ID: [id number]. NOTE: For mammograms, a report in lay terms will be sent to the patient. Approximately 15% of breast malignancies will not be visualized mammographically. In the management of a palpable breast mass, a negative mammogram must not discourage biopsy of a clinically suspicious lesion. Electronically Signed By: Jatinder Tobar M.D. ar/penrad:10/13/2020 10:33:54 ACR BI-RADS Category 1: Negative 3341F PARENCHYMAL PATTERN: (A) - The breast(s) demonstrate(s) scattered fibroglandular densities. BI-RADS CATEGORY: (1) - 1 RECOMMENDATION: (ANNUAL) - Recommend routine annual screening mammography. [id number] 1 year screening LATERALITY: (B)
== END 2020-10-13 09:29 | disposition home or self-care (01) ==
LOC: DI.S 09:28
DX: Z12.31 Encounter for screening mammogram for malignant neoplasm of breast (principal)

== ENCOUNTER 2021-03-30 16:06 | Outpatient (CLI) | payer MEDICARE | END 2021-03-30 16:07 | disposition home or self-care (01) | LOC: LAB.S 16:06 | PROVIDERS: ATTEND Internal Medicine | DX: I48.91 Unspecified atrial fibrillation (principal) | CPT/HCPCS: 36416; 85610 ==

== ENCOUNTER 2021-04-24 13:00 | Outpatient (CLI) | payer MEDICARE | END 2021-04-24 13:01 | disposition home or self-care (01) | LOC: LAB.S 13:00 | PROVIDERS: ATTEND Internal Medicine | DX: I48.91 Unspecified atrial fibrillation (principal) | CPT/HCPCS: 36416; 85610 ==

== ENCOUNTER 2021-04-27 07:03 | Outpatient (CLI) | payer MEDICARE | END 2021-04-27 07:04 | disposition home or self-care (01) | LOC: LAB.S 07:03 | PROVIDERS: ATTEND Internal Medicine | DX: I48.91 Unspecified atrial fibrillation (principal) | CPT/HCPCS: 36416; 85610 ==

== ENCOUNTER 2021-05-04 07:01 | Outpatient (CLI) | payer MEDICARE | END 2021-05-04 07:02 | disposition home or self-care (01) | LOC: LAB.S 07:01 | PROVIDERS: ATTEND Internal Medicine | DX: I48.91 Unspecified atrial fibrillation (principal) | CPT/HCPCS: 36416; 85610 ==

== ENCOUNTER 2021-05-11 07:15 | Outpatient (CLI) | payer MEDICARE | END 2021-05-11 07:16 | disposition home or self-care (01) | LOC: LAB.S 07:15 | PROVIDERS: ATTEND Internal Medicine | DX: I48.91 Unspecified atrial fibrillation (principal) | CPT/HCPCS: 36416; 85610 ==

== ENCOUNTER 2021-05-18 07:13 | Outpatient (CLI) | payer MEDICARE | END 2021-05-18 07:14 | disposition home or self-care (01) | LOC: LAB.S 07:13 | PROVIDERS: ATTEND Internal Medicine | DX: I48.91 Unspecified atrial fibrillation (principal) | CPT/HCPCS: 36416; 85610 ==

== ENCOUNTER 2021-05-25 07:21 | Outpatient (CLI) | payer MEDICARE | END 2021-05-25 07:22 | disposition home or self-care (01) | LOC: LAB.S 07:21 | PROVIDERS: ATTEND Internal Medicine | DX: I48.91 Unspecified atrial fibrillation (principal) | CPT/HCPCS: 36416; 85610 ==

== ENCOUNTER 2021-06-10 08:39 | Outpatient (CLI) | payer MEDICARE | END 2021-06-10 08:40 | disposition home or self-care (01) | LOC: LAB.S 08:39 | PROVIDERS: ATTEND Internal Medicine | DX: I48.91 Unspecified atrial fibrillation (principal) | CPT/HCPCS: 36416; 85610 ==

== ENCOUNTER 2021-06-15 07:03 | Outpatient (CLI) | payer MEDICARE | END 2021-06-15 07:04 | disposition home or self-care (01) | LOC: LAB.S 07:03 | PROVIDERS: ATTEND Internal Medicine | DX: I48.91 Unspecified atrial fibrillation (principal) | CPT/HCPCS: 36416; 85610 ==

== ENCOUNTER 2021-06-18 14:57 | Outpatient (CLI) | payer MEDICARE | END 2021-06-18 14:58 | disposition home or self-care (01) | LOC: LAB.S 14:57 | PROVIDERS: ATTEND Internal Medicine | DX: I48.91 Unspecified atrial fibrillation (principal) | CPT/HCPCS: 36416; 85610 ==

== ENCOUNTER 2021-06-29 07:54 | Outpatient (CLI) | payer MEDICARE | END 2021-06-29 07:55 | disposition home or self-care (01) | LOC: LAB.S 07:54 | PROVIDERS: ATTEND Internal Medicine | DX: I48.91 Unspecified atrial fibrillation (principal) | CPT/HCPCS: 36416; 85610 ==

== ENCOUNTER 2021-08-11 06:59 | Outpatient (CLI) | payer MEDICARE ==
[2021-08-11 14:30] LABS: BASOPHILS % (AUTO) 0.5 %; BILIRUBIN,URINE NEGATIVE (NEGATIVE); EOSINOPHILS # (AUTO) 0.2 10^3/uL (0.0-0.7); EOSINOPHILS % (AUTO) 4.6 %; GLUCOSE, URINE (UA) NEGATIVE (NEGATIVE); HCT - HEMATOCRIT 40.6 % (37.0-47.0); HGB - HEMOGLOBIN 13.4 g/dL (12.0-16.0); KETONES,URINE (UA) NEGATIVE (NEGATIVE); LEUKOCYTE ESTERASE, URINE MODERATE (NEGATIVE); LYMPHOCYTES % (AUTO) 27.8 %; MEAN CORPUSCULAR HEMOGLOBIN 32.8 pg (27.0-31.0); MEAN CORPUSCULAR VOLUME 99.5 fL (81.0-99.0); MONOCYTES # (AUTO) 0.4 10^3/uL (0.0-1.0); MONOCYTES % (AUTO) 10.6 %; NEUTROPHILS # (AUTO) 2.1 10^3/uL (1.5-6.6); NEUTROPHILS % (AUTO) 56.5 %; NITRITE,URINE POSITIVE (NEGATIVE); OCCULT BLOOD,URINE TRACE-INTA (NEGATIVE); PLT - PLATELET COUNT 156 10^3/uL (130-450); PROTEIN,URINE NEGATIVE (NEGATIVE); RED BLOOD COUNT 4.08 10^6/uL (4.20-5.40); RED CELL DISTRIBUTION WIDTH 13.6 % (12.0-15.0); UROBILINOGEN,URINE 0.2 (NORMAL) E.U./dL (NORMAL); WHITE BLOOD COUNT 3.7 x10^3/uL (4.8-10.8)
[2021-08-11 14:35] LABS: CLARITY,URINE CLOUDY (CLEAR)
[2021-08-11 14:42] LABS: ALBUMIN 4.2 g/dL (3.2-5.5); ALBUMIN/GLOBULIN RATIO 1.4 (1.0-2.2); ALKALINE PHOSPHATASE 93 IU/L (42-121); ALT ALANINE AMINOTRANSFERASE 21 IU/L (10-60); AST ASPARTATE AMINOTRANSFERASE 18 IU/L (10-42); BILIRUBIN,TOTAL 0.6 mg/dL (0.2-1.0); BUN - BLOOD UREA NITROGEN 22 mg/dL (6-20); CALCIUM 9.1 mg/dL (8.5-10.3); CARBON DIOXIDE - CO2 29 mmol/L (21-32); CHLORIDE 99 mmol/L (101-111); CHOL/HDL RATIO 4.1 (<4.4); CHOLESTEROL 199 mg/dL; CREATININE 0.9 mg/dL (0.4-1.0); GFR - MDRD 61 (>89); GLUCOSE 108 mg/dL (70-100); HDL CHOLESTEROL 49 mg/dL; LDL CHOLESTEROL,CALCULATED 131 mg/dL; LDL/HDL RATIO 2.7 (<4.4); POTASSIUM 3.7 mmol/L (3.5-5.0); SODIUM 137 mmol/L (135-145); TOTAL PROTEIN 7.1 g/dL (6.7-8.2); TRIGLYCERIDES 95 mg/dL; VLDL CHOLESTEROL 19 mg/dL
[2021-08-11 14:44] LABS: BACTERIA,URINE Many /HPF (None Seen); RBC,URINE 0-5 /HPF (0-5); SQUAMOUS EPITHELIAL CELL,UR RARE Squamous (<= Few); WBC,URINE >25 /HPF (0-5)
[2021-08-11 14:45] LABS: THYROID STIMULATING HORMONE 2.54 uIU/mL (0.34-5.60)
[2021-08-11 15:25] LABS: INR 1.7 (0.8-1.2); PT - PROTHROMBIN TIME 18.9 secs (9.9-12.6)
[2021-08-11 19:39] LABS: ESTIMATED AVERAGE GLUCOSE 91 mg/dL (70-100); HEMOGLOBIN A1c% 4.8 % (4.27-6.07)
== END 2021-08-11 07:00 | disposition home or self-care (01) ==
LOC: LAB.S 06:59
PROVIDERS: ATTEND Internal Medicine
DX: I48.91 Unspecified atrial fibrillation (principal); I10 Essential (primary) hypertension; R73.01 Impaired fasting glucose; R32 Unspecified urinary incontinence
CPT/HCPCS: 36415; 80053; 80061; 81001; 82306; 83036; 83721; 84443; 85025; 85610; 87086

== ENCOUNTER 2023-04-19 09:49 | Outpatient (CLI) | payer MEDICARE ==
--- NOTE | 2023-04-20 16:06 | Mammography Report ---
BILATERAL DIGITAL SCREENING MAMMOGRAM 3D/2D: 04/19/2023 CLINICAL: Routine screening. Comparison is made to exams dated: 10/13/2020 mammogram, 10/04/2017 mammogram, and 08/04/2015 mammogram - [facility]. There are scattered areas of fibroglandular density in both breasts (category b / 25%-50% glandular t issue). No significant masses, calcifications, or other findings are seen in either breast. There has been no significant interval change. IMPRESSION: NEGATIVE There is no mammographic evidence of malignancy. A 1 year screening mammogram is recommended. Based on the Tyrer Cuzick model (a risk assessment model) the patients lifetime risk is 1.1% and her 10 year risk is 0.0%. According to the ACR, ACS, and NCCN guidelines, an annual breast MRI exam yonathan g with mammogram is recommended if the patients lifetime risk is 20% or greater. This exam was interpreted at Station ID: [id number]. NOTE: For mammograms, a report in lay terms will be sent to the patient. Approximately 15% of breast malignancies will not be visualized mammographically. In the management of a palpable breast mass, a negative mammogram must not discourage biopsy of a clinically suspicious lesion. Electronically Signed By: Kofi [email or web address]/[email or web address]:04/19/2023 18:29:51 letter sent: No_Letter ACR BI-RADS Category 1: Negative 3341F PARENCHYMAL PATTERN: (A) - The breast(s) demonstrate(s) scattered fibroglandular densities. BI-RADS CATEGORY: (1) - 1 Mammogram [id number] 1 year screening LATERALITY: (B)
== END 2023-04-19 09:50 | disposition home or self-care (01) ==
LOC: DI.S 09:49
PROVIDERS: ATTEND Internal Medicine
DX: Z12.31 Encounter for screening mammogram for malignant neoplasm of breast (principal); R92.323 Mammographic fibroglandular density, bilateral breasts